=== PATIENT | female | born 1995 | race Two or more races ===

== ENCOUNTER 2020-05-20 12:30 | Outpatient (REF) | payer MEDICAID, SELFPAY | END 2020-05-20 12:31 | disposition home or self-care (01) | LOC: HO.LAB 12:30 | PROVIDERS: Visit Provider Internal Medicine | DX: Z20.828 Contact with and (suspected) exposure to other viral communicable diseases (principal) | CPT/HCPCS: C9803; U0003 ==

== ENCOUNTER 2020-08-26 12:56 | Outpatient (REF) | payer MEDICAID, SELFPAY ==
[2020-08-26 15:01] LABS: SARS COV2 PCR INHOUSE NEGATIVE (Negative)
== END 2020-08-26 12:57 | disposition home or self-care (01) ==
LOC: HO.LAB 12:56
PROVIDERS: Visit Provider Internal Medicine
DX: Z20.822 Contact with and (suspected) exposure to COVID-19 (principal)
CPT/HCPCS: C9803; U0003

== ENCOUNTER 2020-09-05 11:03 | Emergency (ER) | payer MEDICAID, SELFPAY ==
[2020-09-05 11:06] VITALS: BP 130/80; PULSE 110
[2020-09-05 11:32] LABS: Glucose, Whole Blood 81 mg/dL (60-115)
[2020-09-05 11:49] LABS: COVID-19 Test Negative (Negative)
[2020-09-05 11:59] VITALS: BP 140/73; PULSE 135; RESP 18; TEMP 39.6; O2SAT 98
[2020-09-05 12:53] VITALS: BP 140/73; PULSE 135; RESP 18; TEMP 39.6; O2SAT 98; BMI 39.3
--- NOTE | 2020-09-05 14:21 | ED.FEVER ---
HPI - Fever General Chief Complaint: Fever Stated Complaint: headache/anxiety Time Seen by Provider: 09/05/20 14:16 Source: patient Mode of arrival: ambulatory Limitations: no limitations History of Present Illness HPI Narrative: 25 yo female healthy with one day of fevers, close exposure last week to COVID + person, no other complaints MD elicited complaint: fever Pertinent past history: other (COVID exposure) Onset (ago): day(s) (1) Context: sick contacts and other(s) with similar symptoms Exacerbating factors: nothing Relieving factors: ibuprofen Associated symptoms: chills and headache Treatments prior to arrival fever: none Related Data Allergies Allergy/AdvReac Type Severity Reaction Status Date / Time No Known Allergies Allergy Verified 09/05/20 14:26 Review of Systems Review of Systems: Constitutional : No Weight loss, pos Fever, pos Chills, No Fatigue, No Malaise ENT/Mouth : No sore throat, No Rhinorrhea Eyes: No Eye Pain, No Swelling, No Redness Cardiovascular : No Chest Pain, No SOB Respiratory : No Cough, No Sputum, No Wheezing Gastrointestinal : No Nausea, No Vomiting, No Diarrhea, No Constipation, No abdominal Pain Genitourinary : No Dysuria, No Urinary Frequency, No Hematuria, Musculoskeletal : No joint pain, No Myalgias, No Joint Swelling Skin : No Skin Lesions, No rash Neuro : No Weakness, No Numbness, No Dizziness, mild pos Headache Heme/Lymph: No Bruising, No Bleeding,No Lymphadenopathy PMFSH Past Medical History Attestation statement: The following information was validated with the patient. Medical History No active medical problems Social History Social History (Updated 09/05/20 @ 14:34 by Cande Garcia DO) Smoking Status: Never smoker Use of substances other than those prescribed or required for medical reasons: No Advance Directives: No Physical Exam Vital Signs: Vital Signs: Last Vital Signs Temp 98.1 F 09/05/20 14:31 Pulse 135 H 09/05/20 12:53 Resp 18 09/05/20 12:53 BP 140/73 H 09/05/20 12:53 Pulse Ox 98 09/05/20 12:53 Body Mass Index 39.3 Appearance: Alert. Oriented X3. No acute distress. Eyes: Pupils equal, round and reactive to light. ENT: Pharynx normal. Neck: Normal inspection. Neck supple. CVS: Normal heart rate and rhythm. Pulses normal. Respiratory: No respiratory distress. Breath sounds normal. Abdomen: Soft and nontender. Skin: Skin warm and dry. Normal skin color. Normal skin turgor. Extremities: No lower extremity edema. No calf ttp Neuro: Oriented X 3. No motor deficit. No sensory deficit. Course Course Course Narrative: called with and left message with results instructed to return if this persists and to be retested in 3 days to remain out of work MDM - Fever MDM Narrative Medical decision making narrative: 25 yo female with recent close COVID exposure who tested positive on Tuesday she was at work today and developed a fever - she c/o fevers today, mild headache - no other complaints no cough, no urinary symptoms no rash - initial Abott sent off will send off PCR and treat as presumed COVID - patient aware and agrees, fever treated in triage not toxic Lab Data Labs: Lab Results 09/05/20 09/05/20 09/05/20 Range/Units 11:15 11:22 14:35 POC Glucose 81 (60-115) mg/dL Coronavirus (PCR) NEGATIVE (Negative) COVID-19 (PAN) Negative (Negative) COVID-19 Clin Com See Note Influenza Type A (PCR) NEGATIVE (Negative) Influenza Type B (PCR) NEGATIVE (Negative) RSV RNA Qual (PCR) NEGATIVE (Negative) Discharge Plan Discharge Clinical Impression: Viral infection, Close exposure to COVID-19 virus Fever Qualifiers: Fever type: unspecified Qualified Code(s): R50.9 - Fever, unspecified Patient Disposition: Home, Self-Care Instructions: COVID-19 (Coronavirus Disease 2019) (ED) Additional Instructions: return to ED for any worsening symptoms or concerns will call you with your COVID results today Stand Alone Forms: Work/School Release Interventions: ED Discharge Assessment Last Done: 09/05/20 15:01 Discharge Date/Time: 09/05/20 15:02
[2020-09-05 14:31] VITALS: TEMP 36.7
[2020-09-05] MEDS: Acetaminophen 325 MG TABLET 650 MG PO (15:01)
[2020-09-05 15:20] LABS: Influenza A PCR NEGATIVE (Negative); Influenza B PCR NEGATIVE (Negative); Resp Syncy Virus RNA Qual PCR NEGATIVE (Negative); SARS COV2 PCR INHOUSE NEGATIVE (Negative)
== END 2020-09-05 15:02 | disposition home or self-care (01) ==
LOC: HO.ED 14:39
PROVIDERS: Emergency Provider Emergency Medicine
DX: B34.9 Viral infection, unspecified (principal); Z20.822 Contact with and (suspected) exposure to COVID-19; R51.9 Headache, unspecified; R50.9 Fever, unspecified
CPT/HCPCS: 0241U; 36415; 82947; 87635; 99283

== ENCOUNTER 2020-09-09 15:17 | Outpatient (REF) | payer MEDICAID, SELFPAY ==
[2020-09-09 16:10] LABS: COVID-19 Test Negative (Negative)
== END 2020-09-09 15:18 | disposition home or self-care (01) ==
LOC: HO.LAB 15:17
PROVIDERS: Visit Provider Internal Medicine
DX: Z20.822 Contact with and (suspected) exposure to COVID-19 (principal)
CPT/HCPCS: 36415; 87635; C9803

== ENCOUNTER 2021-02-20 15:06 | Outpatient (REF) | payer MEDICAID, SELFPAY | END 2021-02-20 15:07 | disposition home or self-care (01) | LOC: HO.LAB 15:06 | PROVIDERS: Visit Provider Internal Medicine | DX: Z20.822 Contact with and (suspected) exposure to COVID-19 (principal) | CPT/HCPCS: C9803; U0003; U0005 ==

== ENCOUNTER 2021-08-04 08:46 | Emergency (ER) | payer MEDICAID, SELFPAY ==
--- NOTE | ~2021-08-04 | CT_ITS ---
EXAMINATION: CT HEAD WITHOUT CONTRAST CLINICAL INFORMATION: Fluoroscopy,. History of recent vision loss. COMPARISON: None TECHNIQUE: Contiguous axial imaging was performed from the skull base to vertex without intravenous administration of contrast. This CT examination was performed using dose optimization techniques as appropriate, variously including the following: *Automated exposure control *Adjustment of mA and/or kV according to patient size (this includes techniques or standardized protocols for targeted exams where dose is matched to indication/reason for exam; i.e. extremities or head) *Use of iterative reconstruction technique DLP: 686 mGy-cm FINDINGS: There is no evidence of acute intracranial hemorrhage or territorial infarction. No abnormal mass effect or midline shift is seen. Wiggins to white matter differentiation is well preserved. No extra-axial fluid collections are identified. The ventricles are normal in size. There is no abnormal attenuation within the brain parenchyma. The osseous structures and soft tissues are normal. The mastoid air cells and visualized portions of the paranasal sinuses are well aerated. CT/CT head/brain wo con IMPRESSION: No acute intracranial pathology.
[2021-08-04 10:31] VITALS: BP 158/70; PULSE 69; RESP 16; TEMP 37.2; O2SAT 99; BMI 38.6
[2021-08-04 13:10] LABS: MANUAL DIFF FLAG NO
[2021-08-04 13:14] LABS: Basophils Absolute Auto 0.1 X10*3/uL (0.0-0.2); Basophils Percent Auto 0.6 % (0-2); Eosinophils Absolute Auto 0.1 X10*3/uL (0.0-0.4); Hemoglobin 14.2 g/dl (12.0-16.0); Imm Gran Abs Auto 0.03 X10*3/uL (0.00-0.03); Imm Gran Pct Auto 0.4 % (0.0-0.4); Lymphocytes Absolute Auto 2.2 X10*3/uL (1.2-4.9); Lymphocytes Percent Auto 26.3 % (20-40); Mean Corpuscular Volume 84.6 fL (80.0-98.0); Mean Platelet Volume 11.5 fL (9.4-12.3); Monocytes Absolute Auto 0.7 X10*3/uL (0.1-1.2); Monocytes Percent Auto 8.2 % (2-11); Neutrophils Absolute Auto 5.2 x10*3/uL (2.0-8.3); Neutrophils Percent Auto 63.5 % (45-73); Platelet Count 303 X10*3/uL (160-400); Red Blood Count 5.08 X10*6/uL (4.20-5.50); Red Cell Distribution Width 12.9 % (11.0-16.0); White Blood Count 8.2 X10*3/uL (4.8-10.8)
[2021-08-04] MEDS: 0.9 % Sodium Chloride 1,000 ML 999 ML IVCONT (13:37)
[2021-08-04] MEDS: Ketorolac Tromethamine 15 MG/ML VIAL 30 MG IV (13:37)
[2021-08-04] MEDS: diphenhydrAMINE HCL 50 MG/ML VIAL 25 MG IVPUSH (13:38)
[2021-08-04 13:42] VITALS: BP 181/87; PULSE 82; RESP 16; O2SAT 99
[2021-08-04 13:53] LABS: Erythrocyte Sedimentation Rate 6 MM/HR (0-20)
--- NOTE | 2021-08-04 14:24 | ED_ITS ---
HPI - Headache General Chief Complaint: Headache Stated Complaint: Migraine Time Seen by Provider: 08/04/21 11:53 Source: patient Mode of arrival: ambulatory Limitations: no limitations History of Present Illness HPI Narrative: 26-year-old female with a past medical history of glaucoma currently on steroid drops presenting to the ED with complaints of a headache that came on gradually when she was at the store a few hours prior to arrival which started with a pain to her left orbital area and a dot in her vision then when she left the store she got in her car was driving and the pain worsened and she reports as a pressure and sensation/ warm sensation she reports that the spot in her I got bigger and it was more in her peripheral vision she describes it as different colors and looks like it was changing shapes per the patient. She reports that this lasted approximately 3 minutes and then her blurry vision/ weird colored shapes resolved and her vision went back to normal although now she has a head ache to the right aspect of her frontal / parietal scalp. She reports that she is currently on drops for her glaucoma. She was last seen by her director multiple sclerosis center in March 2021 and they explained to her that her right eye pressure is getting better. Although the left eye pressure is still a little worse than the right. Otherwise she denies any other symptoms related to this such as any fevers, neck pain/ stiffness, recent head injury or falls, any CO2 toxicity, recent tick bites, recent spinal/ epidural procedure, recent URI or any new medications, close contacts with similar symptoms, sick contacts, She denies any hypercoagulation disorder that she is aware of, or any other symptoms complaints or concerns at this time. MD elicited complaint: headache Pertinent past history: other ( history of glaucoma to bilateral eyes currently on steroid drops) Onset (ago): hour(s) ( prior to arrival) Onset description: gradually and with exertion Location: other ( left orbital area) Severity: mild Pain scale (0-10): 2 Quality & Timing: aching, pressure and first headache Exacerbating factors: none Relieving factors: nothing Context: occurred with exertion/activity Associated symptoms: other ( patient reported blurry vision and odd shape/ colors to her peripheral aspect of her left eye) Treatments prior to arrival: none Related Data Previous Rx's Medication Instructions Recorded diphenhydramine HCl 25 mg capsule 25 mg PO Q6H PRN #14 cap 03/08/22 (Benadryl) naproxen 500 mg tablet 500 mg PO BID PRN #14 tab 08/04/21 ondansetron 4 mg disintegrating 4 mg PO Q6-8H PRN #14 tab 08/04/21 tablet Allergies Allergy/AdvReac Type Severity Reaction Status Date / Time No Known Allergies Allergy Verified 09/05/20 14:26 Review of Systems Review of Systems: Constitutional : No changes in activity, No lethargy, No recent prior head injury, No agitation, No increased fussiness ENT/Mouth : No Ear Pain, No Nasal discharge/drainage Eyes: No Eye Pain, No Swelling, No Redness, No Foreign Body, + Vision Changes Cardiovascular : No Chest Pain, No SOB Respiratory : No Cough Gastrointestinal : No Nausea, No Vomiting, No abdominal Pain Genitourinary : No Dysuria, No Urinary Frequency, No Urinary Incontinence, No Urgency, No Flank Pain Musculoskeletal : No joint pain, No neck stiffness, No back pain/injury Skin : No lacerations Neuro : No unsteady gait, No Paresthesias, No Loss of Consciousness, No altered mental status, No dizziness, + Headache Denies past medical history of HIV, recent trauma, coagulopathy, recent spinal/ epidural procedure, new medication, URI symptoms, close contacts with similar symptoms, tick bite, or known CO2 exposure. Yes all other systems are reviewed and are negative [facility] Past Medical History Attestation statement: The following information was validated with the patient. Medical History Glaucoma Social History Social History Advance Directives: No Advance Directives Information Provided: No Physical Exam Vital Signs: Vital Signs: Last Vital Signs Temp 99.0 F 08/04/21 10:31 Pulse 82 08/04/21 13:42 Resp 16 08/04/21 13:42 BP 181/87 H 08/04/21 13:42 Pulse Ox 99 08/04/21 13:42 BMI result Body Mass Index 38.6 Vital signs have been reviewed as normal and appeared to be correct. Blood pressure 158/70. Heart rate normal. Respiration rate normal. Temperature normal. Oxygen saturation normal. Appearance: Alert. Oriented X3. No acute distress. Head: Normal external exam. Normocephalic. Atraumatic. Able to rotate head bilaterally. Eyes: PERRLA. EOMI. Conjunctiva are normal. Cornea are normal. Funduscopic exam within normal limits. Sclera normal. Eyelids normal. No papilledema noted. Anterior chamber normal. No photophobia noted. Pressure to right eye is 23. Pressure to left eye is 25. See nurse's notes for visual acuity. Corneal reflex normal. No nystagmus is noted. ENT: EAC normal. TM's Normal. Hearing normal. Pharynx normal. Uvula midline. tongue midline. Moist mucous membranes. No trismus noted. No drooling noted. No muffled voice noted. Neck: Normal inspection. Neck supple. FROM. No adenopathy. Thyroid Normal. No meningeal signs. No neck mass noted. CVS: Normal heart rate and rhythm. Heart sound normal. No murmurs noted. Pulses normal throughout. Respiratory: No respiratory distress. Painless inspiration. Breath sounds normal. No wheezes/rales/rhonchi noted. Chest nontender. No accessory muscle usage noted or decreased air movement noted. Back: Full range of motion noted. Skin: Skin warm and dry. Normal skin color. Normal skin turgor. No rashes/lesions/lacerations noted. Extremities: Extremities exhibit normal range of motion. Extremities nontender. Able to shrug shoulders bilaterally and keep up against resistance. Neuro: Oriented X 3. No motor deficit. No sensory deficit. Reflexes normal. Moving all extremities. No focal motor deficits. Cranial nerves II-XI intact bilaterally. Facial strength normal. Normal cognition. Speech normal. Gait normal. Strength 5/5 throughout. No pronator drift. No tremor noted. No fasciculations noted. Muscle tone normal throughout. No asterixis noted. Cyixjl-vj-bvqw test normal. Heel to lin test normal. Tandem gait normal. Does not sway with eyes open. Romberg test negative. Rapid alternating movement upper extremity normal. Rapid alternating movement lower extremity normal. Hand drop from overhead-Mrs. face. No rigidity noted. NIHSS score 0. Vascular: +2radial pulses b/l. + 2 distal pedal pulses b/l. no cyanosis noted to upper lower extremities. Course Course Course Narrative: 12:30pm - Patient afebrile, resting comfortably in no distress. Non-toxic appearing. Patient denies any recent trauma/injury to head. Neurological exam shows no deficits. BP WNL. Patient ambulates without difficulty. Given the history, and physical - most likely diagnosis: Orbital Migraine VIRAMONTES. Although due to patient reporting that this is the 1st time this has ever happened to her will obtain a CT scan of brain to evaluate for any acute processes. Will obtain labs. Will treat pain, and nausea. Then re-evaluate. gradual onset VIRAMONTES with nausea Most likely orbital migraine headache Due to history and physical. SAH: unlikely given gradual onset. Intracranial bleed: unlikely given neg trauma, neg anticoagulation Meningitis: unlikely given pt afebrile, neg stiff neck, no immune compromise. Exam without signs of meningismus Temporal arteritis: Unlikely given Neg jaw claudication, no temporal tenderness or nodularity on exam. Cerebral venous thrombosis: unlikely given no h/o hypercoaguable state, no chronic head/neck infection. Reevaluation(s) Reevaluation #1: - labs reviewed and carbon dioxide 21. BUN 5. CRP 0.52. Otherwise all other labs are within normal limits. Serum quant negative for . CT scan of brain within normal limits no acute processes are noted. - Therefore I discussed this with the patient reported that her eye pressures are normal therefore this is not worsening glaucoma at this time. Her CT scan is normal There is no mass or any other acute processes noted. She has a normal neuro exam. All her labs are normal. Therefore this is consistent with orbital migraine headache. Will DC home with symptomatic treatment instructions to return if any new or worsening symptoms to follow up with PCP/ o phthalmologist and to return if any new or worsening symptoms. Patient understands agrees with this plan. Time: 14:38 [facility] - Headache Medical Records Attestation: I reviewed the patient's medical records. Lab Data Attestation: I reviewed the patient's lab results. Result diagrams: 08/04/21 13:02 08/04/21 13:02 Labs: Lab Results 08/04/21 08/04/21 Range/Units 13:02 13:02 WBC 8.2 (4.8-10.8) X10*3/uL RBC 5.08 (4.20-5.50) X10*6/uL Hgb 14.2 (12.0-16.0) g/dl Hct 43.0 (37.0-47.0) % MCV 84.6 (80.0-98.0) fL MCH 28.0 (27.0-33.0) pg MCHC 33.0 (31.0-35.0) g/dl RDW 12.9 (11.0-16.0) % Plt Count 303 (160-400) X10*3/uL MPV 11.5 (9.4-12.3) fL Immature Gran % (Auto) 0.4 (0.0-0.4) % Neut % (Auto) 63.5 (45-73) % Lymph % (Auto) 26.3 (20-40) % [place] % (Auto) 8.2 (2-11) % Eos % (Auto) 1.0 (0-4) % Baso % (Auto) 0.6 (0-2) % Lymph # (Auto) 2.2 (1.2-4.9) X10*3/uL [place] # (Auto) 0.7 (0.1-1.2) X10*3/uL Eos # (Auto) 0.1 (0.0-0.4) X10*3/uL Baso # (Auto) 0.1 (0.0-0.2) X10*3/uL Abs Immat Gran (auto) 0.03 (0.00-0.03) X10*3/uL Absolute Neuts (auto) 5.2 (2.0-8.3) x10*3/uL Absolute Nucleated RBC 0.000 (0.0-0.012) X10*3/uL Nucleated RBC % (auto) 0.0 (0.0-0.2) /100WBC ESR 6 (0-20) MM/HR Imaging Data CT scan of brain without contrast: Attestation: I personally reviewed and interpreted this imaging study as follows: Radiologist's impression: FINDINGS: There is no evidence of acute intracranial hemorrhage or territorial infarction. No abnormal mass effect or midline shift is seen. Wiggins to white matter differentiation is well preserved. No extra-axial fluid collections are identified. The ventricles are normal in size. There is no abnormal attenuation within the brain parenchyma. The osseous structures and soft tissues are normal. The mastoid air cells and visualized portions of the paranasal sinuses are well aerated. ? CT/CT head/brain wo con IMPRESSION: No acute intracranial pathology. 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
[2021-08-04 14:28] LABS: Alanine Aminotransferase 21 U/L (0-31); Albumin Level 4.1 g/dL (3.5-5.0); Alkaline Phosphatase 96 U/L (39-117); Anion Gap 12 (12-20); Aspartate Amino Transferase 23 U/L (5-31); Bilirubin Total 0.4 mg/dL (0.0-1.0); Blood Urea Nitrogen 5 mg/dL (9-16); C Reactive Protein 0.52 mg/dL (< or = 0.50); Calcium 8.9 mg/dL (8.4-10.2); Carbon Dioxide 21 mmol/L (22-29); Chloride 108 mmol/L (96-108); Creatinine Clr Calc Pharmacy 136.3; Estimated Glomerular Filt Rate > 60; Glucose Random 89 mg/dL (60-115); Magnesium 1.9 mg/dL (1.6-2.6); Potassium 4.8 mmol/L (3.3-5.1); Sodium 136 mmol/L (135-145)
[2021-08-04 14:29] LABS: HCG Quantitative < 2 mIU/mL
== END 2021-08-04 15:01 | disposition home or self-care (01) ==
PROVIDERS: Physician Assistant Medical; Emergency Provider Emergency Medicine Emergency Medical Services
DX: G43.B0 Ophthalmoplegic migraine, not intractable (principal); H40.9 Unspecified glaucoma
CPT/HCPCS: 36415; 70450; 80053; 83735; 84702; 85025; 85652; 86140; 96361; 96374; 96375; 99284; 99291; J1200; J1885

== ENCOUNTER 2022-04-22 12:39 | Emergency (ER) | payer MEDICAID, SELFPAY ==
[2022-04-22 12:41] VITALS: BP 169/101; PULSE 127; RESP 19; TEMP 36.6; O2SAT 98; BMI 38.6
--- NOTE | 2022-04-22 12:50 | ED.NAVMDI ---
HPI - Nausea/Vomiting/Diarrhea General Chief complaint: Nausea/Vomiting/Diarrhea Stated complaint: NAUSEA VOMITING UNABLE TO EAT ANYTHING Time Seen by Provider: 04/22/22 12:47 Source: patient Limitations: no limitations History of Present Illness HPI Narrative: Patient concerned about food poisoning. Patient with nausea followed by vomiting. Others had the meat taco but no one else got sick. Patient had a fever, no sore throat or cough. Patient had some diarrhea. MD elicited complaint: nausea, vomiting and diarrhea Onset (ago): day(s) Associated nausea: Yes Associated abdominal pain: No Severity: mild Exacerbating factors: eating Associated symptoms: denies other symptoms Related Data Previous Rx's Medication Instructions Recorded diphenhydramine HCl 25 mg capsule 25 mg PO Q6H PRN nausea and 08/04/21 (Benadryl) vomiting #14 caps naproxen 500 mg tablet 500 mg PO BID PRN pain #14 tabs 08/04/21 ondansetron 4 mg disintegrating 4 mg PO Q6-8H PRN nausea and 08/04/21 tablet vomiting #14 tabs ondansetron 4 mg disintegrating 4 mg PO Q8H 4 days #12 tabs 04/22/22 tablet Allergies Allergy/AdvReac Type Severity Reaction Status Date / Time No Known Allergies Allergy Verified 09/05/20 14:26 Review of Systems Review of Systems: Yes all other systems are reviewed and are negative Gastrointestinal: Gastrointestinal: Reports nausea Neurologic: Denies Sensory deficit (Neuro) [facility] Past Medical History Medical History Glaucoma Social History Social History Alcohol intake: never Smoked in Last 30 Days: No Use of substances other than those prescribed or required for medical reasons: Yes Substance Use Type: Marijuana Advance Directives: No Advance Directives Information Provided: Yes Patient : No Physical Exam Vital Signs: Vital Signs: Last Vital Signs Temp 98.2 F 04/22/22 14:11 Pulse 83 04/22/22 14:11 Resp 16 04/22/22 14:11 BP 133/89 04/22/22 14:11 Pulse Ox 99 04/22/22 14:11 O2 Del Method 04/22/22 14:11 BMI result Body Mass Index 38.6 Const: General: healthy appearing Nutritional Appearance: average body habitus Orientation/consciousness: oriented to person and patient oriented x3 Limitations: no limitations HEENT: Head: Yes normal to inspection Ears: external ears normal General nose exam: Normal external nose present Mouth: Normal oral and palatal mucosa present and oropharynx normal Throat: Yes posterior oropharynx normal Eyes: General: appearance normal, both eyes and all related structures Neck: Other: supple Neck: Yes normal visual inspection Chest: Chest palpation & inspection: normal inspection of the chest Resp: Auscultation: clear to auscultation bilaterally Cardio: Jugular venous distension: no JVD Rate: regular rate Rhythm: regular rhythm Heart sounds: S1 normal heart sound present and S2 normal heart sound present GI: Inspection: Yes normal to inspection Palpation (GI): Soft to palpation, nontender and No hepatosplenomegaly present Auscultation: normal bowel sounds : General: Yes no CVA tenderness Back/Spine/Pelvis: Back: no CVA tenderness Skin: General skin exam: no rashes or lesions noted Neuro: General: oriented to person and patient oriented x3 Cranial nerves: Yes CN's II-XII intact bilaterally Motor exam (neuro): 5/5 motor strength present throughout Sensory Exam: No Sensory deficit (Neuro) Extrem: General: Yes normal to inspection Psych: Appearance: grossly normal Course Reevaluation(s) Reevaluation #1: Respiratory virus negative, no UTI (UA was contaminated) will dc on zofran Time: 15:40 Medications Administered Discontinued Medications Generic Name Dose Route Start Last Admin Trade Name Freq PRN Reason Stop Dose Admin Ondansetron HCl 4 mg 04/22/22 12:56 04/22/22 13:02 Ondansetron Odt 4 Mg Tab.Rapdis TRANSLINGU 04/22/22 12:57 4 mg ONCE ONE Administration MDM - Nausea/Vomiting/Diarrhea Lab Data Labs: Lab Results 04/22/22 04/22/22 04/22/22 Range/Units 13:06 14:39 14:39 Urine Color Yellow Urine Appearance Clear Urine pH 5.5 (5.0-9.0) Ur Specific [place] 1.010 (1.005-1.025) Urine Protein Negative (Neg-Trace) mg/dL Urine Glucose (UA) Negative (Negative) mg/dL Urine Ketones 15 (Negative) mg/dL Urine Blood Small (1+) H (Negative) Urine Nitrite Negative (Negative) Ur Leukocyte Esterase Small (1+) H (Negative) Urine RBC 0-2 (0-2) /HPF Urine WBC 11-20 H (0-5) /HPF Ur Squamous Epith Cells 11-20 (0-2) /HPF Urine Bacteria 1+ (None Seen) Hyaline Casts 0-2 (0-2) /LPF Urine Test NEGATIVE (NEGATIVE) Influenza Type A (PCR) NEGATIVE (Negative) Influenza Type B (PCR) NEGATIVE (Negative) RSV RNA Qual (PCR) NEGATIVE (Negative) SARS-CoV-2 RNA (RT-PCR) NEGATIVE (Negative) Discharge Plan Discharge Clinical Impression: Nausea & vomiting Patient Disposition: Home, Self-Care Instructions: Acute Nausea and Vomiting (ED) Prescriptions: New ondansetron 4 mg tablet,disintegrating 4 mg PO Q8H 4 Days Qty: 12 0RF No Action naproxen 500 mg tablet 500 mg PO BID PRN (Reason: pain) Qty: 14 0RF diphenhydramine HCl [Benadryl] 25 mg capsule 25 mg PO Q6H PRN (Reason: nausea and vomiting) Qty: 14 0RF ondansetron 4 mg tablet,disintegrating 4 mg PO Q6-8H PRN (Reason: nausea and vomiting) Qty: 14 0RF Referrals: Physician,Unknown J [Primary Care Provider] - 1 week
[2022-04-22] MEDS: Ondansetron ODT 4 MG TAB.RAPDIS TRANSLINGU (13:02)
--- NOTE | 2022-04-22 13:19 | PC.NURSE ---
patient a&ox3, pt medicated for nausea per order, swab obtained, pt is aware that we also need a urine.
[2022-04-22 13:57] LABS: Influenza A PCR NEGATIVE (Negative); Influenza B PCR NEGATIVE (Negative); Resp Syncy Virus RNA Qual PCR NEGATIVE (Negative); SARS COV2 PCR INHOUSE NEGATIVE (Negative)
[2022-04-22 14:11] VITALS: BP 133/89; PULSE 83; RESP 16; TEMP 36.8; O2SAT 99
[2022-04-22 14:48] LABS: Appearance Urine Clear; Color Urine Yellow; Glucose Urine UA Negative (Negative); Leukocyte Esterase Urine Small (1+) (Negative); Nitrite Urine Negative (Negative); PH 5.5 (5.0-9.0); UMIC TRIGGER UACC YES; Urine Blood Small (1+) (Negative); Urine Ketones 15 mg/dL (Negative); Urine Protein Negative (Neg-Trace)
[2022-04-22 14:49] LABS: UPreg QC Valid YES; Urine Pregnancy NEGATIVE (NEGATIVE)
[2022-04-22 15:01] LABS: Bacteria Urine 1+ (None Seen); Hyaline Casts Urine 0-2 /LPF (0-2); RBC Urine 0-2 /HPF (0-2); UACC Culture Trigger YES
[2022-04-22 15:59] VITALS: BP 135/82; PULSE 80; RESP 18; TEMP 37.1; O2SAT 99
== END 2022-04-22 16:01 | disposition home or self-care (01) ==
PROVIDERS: Emergency Provider Emergency Medicine
DX: R11.2 Nausea with vomiting, unspecified (principal); Z20.822 Contact with and (suspected) exposure to COVID-19
CPT/HCPCS: 0241U; 81001; 81025; 87086; 87147; 99283; 99284

== ENCOUNTER 2022-05-08 07:00 | Emergency (ER) | payer MEDICAID, SELFPAY ==
[2022-05-08 07:03] VITALS: BP 148/100; PULSE 100; RESP 20; TEMP 36.8; O2SAT 99; BMI 38.9
[2022-05-08 07:55] LABS: Appearance Urine Cloudy; Color Urine Yellow; Glucose Urine UA Negative (Negative); Leukocyte Esterase Urine Large (3+) (Negative); Nitrite Urine Negative (Negative); PH 5.5 (5.0-9.0); Specific Gravity - Urine 1.015 (1.005-1.025); UMIC TRIGGER UACC YES; Urine Blood Negative (Negative); Urine Ketones 15 mg/dL (Negative); Urine Protein Trace mg/dL (Neg-Trace)
[2022-05-08 07:59] LABS: Urine Pregnancy NEGATIVE (NEGATIVE)
[2022-05-08 08:00] LABS: UPreg QC Valid YES
--- NOTE | 2022-05-08 08:03 | ED.FEMALEGU ---
HPI - Female Genitourinary General Chief complaint: Urogenital-Female Stated complaint: yeast infection Time Seen by Provider: 05/08/22 08:01 Source: patient Mode of arrival: ambulatory History of Present Illness HPI Narrative: 27-year-old female with past medical history of glaucoma, recently treated for yeast infection s/p antibiotic use presenting to the ED complaining of painful lesions to vaginal area x 1 week with clear vaginal discharge. States had pelvic exam for yearly PAP smear, diagnosed with yeast infection however next day developed worsening red bumps/lesions. Reports new sexual partner two weeks ago, there is concern for STI. Reports associated dysuria. Denies fever, chills, abdominal pain, flank pain, hematuria MD elicited complaint: dysuria, vaginal discharge and possible STD Related Data Previous Rx's Medication Instructions Recorded diphenhydramine HCl 25 mg capsule 25 mg PO Q6H PRN nausea and 08/04/21 (Benadryl) vomiting #14 caps naproxen 500 mg tablet 500 mg PO BID PRN pain #14 tabs 08/04/21 ondansetron 4 mg disintegrating 4 mg PO Q6-8H PRN nausea and 08/04/21 tablet vomiting #14 tabs ondansetron 4 mg disintegrating 4 mg PO Q8H 4 days #12 tabs 04/22/22 tablet doxycycline hyclate 100 mg tablet 100 mg PO BID 7 days #14 tabs 05/08/22 valacyclovir 1 gram tablet 1,000 mg PO BID 10 days #20 tabs 05/08/22 (Valtrex) metronidazole 500 mg tablet 500 mg PO BID 7 days #14 tabs 05/10/22 Allergies Allergy/AdvReac Type Severity Reaction Status Date / Time No Known Allergies Allergy Verified 09/05/20 14:26 Review of Systems Review of Systems: Constitutional: No Fever, No Chills, No Fatigue, No Malaise ENT/Mouth: No Ear Pain, No Nasal Congestion, No Sinus Pain, No Hoarseness, No sore throat, No Rhinorrhea, No Swallowing Difficulty Eyes: No Eye Pain, No Swelling, No Redness, No Vision Changes Cardiovascular: No Chest Pain, No SOB, No Edema, No Palpitations Respiratory: No Cough, No Sputum, No Wheezing, No Smoke Exposure, No Dyspnea Gastrointestinal: No Nausea, No Vomiting, No Diarrhea, No Constipation, No Abdominal pain Genitourinary: No irregular bleeding, + Dysuria, +vaginal discharge, +vaginal lesions, No Hematuria, No Flank Pain, No Urinary Flow Changes, No Hesitancy Musculoskeletal: No joint pain, No Myalgias, No Joint Swelling Skin: No Skin Lesions, No rash Neuro: No Weakness, No Dizziness, No Headache Yes all other systems are reviewed and are negative Constitutional: Constitutional: Reports as per [facility] Past Medical History Attestation statement: The following information was validated with the patient. Medical History Glaucoma Social History Social History Alcohol intake: never Substance Use Type: Marijuana Advance Directives: No Advance Directives Information Provided: No Physical Exam Vital Signs: Vital Signs: Last Vital Signs Temp 98.2 F 05/08/22 07:03 Pulse 100 05/08/22 07:03 Resp 20 05/08/22 07:03 BP 148/100 H 05/08/22 07:03 Pulse Ox 99 05/08/22 07:03 O2 Del Method 05/08/22 07:03 BMI result Body Mass Index 38.9 Const: General: cooperative, healthy appearing and no acute distress Orientation/consciousness: patient oriented x3 Limitations: no limitations HEENT: Head: Yes normal to inspection and Yes atraumatic Ears: hearing grossly normal bilaterally General nose exam: Normal external nose present Face and sinus: Yes normal facial exam Eyes: General: appearance normal, both eyes and all related structures EOM: EOMs intact bilaterally Neck: Neck: Yes normal visual inspection and Yes no meningeal signs Resp: Effort & Inspection: normal respiratory effort and no respiratory distress Cardio: Rate: regular rate Heart sounds: S1 normal heart sound present and S2 normal heart sound present GI: Inspection: Yes normal to inspection Palpation (GI): Soft to palpation, nontender, no guarding and not rigid : General: Yes no CVA tenderness External Female Exam: lesion (+erythematous ulcerations to labia majora/minora and perianal area) Speculum Exam - Vagina: abnormal vaginal discharge white, clear and virgen and No vaginal bleeding Speculum Exam - Cervix: Abnormal cervical discharge present OB/external & speculum: No vaginal bleeding Back/Spine/Pelvis: Back: no CVA tenderness Skin: Rashes: no rashes Wounds: no wounds Neuro: General: patient oriented x3, tone normal and no meningeal signs Gait exam (Neuro): Normal gait present Extrem: General: Yes normal to inspection Course Course Course Narrative: -UA with leukocyte esterase, 21-50 wbc's, rbc's, and epithelials > likely from STI rather than UTI. Patient agreeable to empiric STI treatment with IM Rocephin, PO doxycycline, and p.o. Valtrex Results discussed with patient including worrisome signs and symptoms and strict return precautions, and when to return to the emergency department. They verbalized understanding and feel safe for discharge at this time. Medications Administered Discontinued Medications Generic Name Dose Route Start Last Admin Trade Name Freq PRN Reason Stop Dose Admin Ceftriaxone Sodium 500 mg/ 0 mg 05/08/22 09:46 05/08/22 09:57 Lidocaine HCl 1 ml IM 05/08/22 09:47 1 kit ONCE ONE Administration Doxycycline Monohydrate 100 mg 05/08/22 09:46 05/08/22 09:57 Doxycycline Monohydrate 100 Mg Capsule PO 05/08/22 09:47 100 mg ONCE ONE Administration Valacyclovir HCl 1,000 mg 05/08/22 09:46 05/08/22 09:57 Valacyclovir Hcl 1,000 Mg Tablet PO 05/08/22 09:47 1,000 mg ONCE ONE Administration Medical Decision Making Medical Decision Making [facility] Narrative: 27-year-old female with past medical history of glaucoma, recently treated for yeast infection s/p antibiotic use presenting to the ED complaining of painful lesions to vaginal area x 1 week with clear vaginal discharge. On exam hypertensive likely from pain, NAD/nontoxic, abdomen soft/nontender, on pelvic exam + ulcerations to labia and perianal area with notable vaginal discharge. Concern herpes and other STI. Low suspicion for ovarian torsion/TOA or appendicitis/diverticulitis. Rule out UTI Plan: UA, , STI testing Differential Diagnoses: Differential diagnosis (as above) Lab Attestation: I reviewed the patient's lab results. Discharge Plan Discharge Clinical Impression: Herpes, STI (sexually transmitted infection) Patient Disposition: Home, Self-Care Instructions: Genital Herpes Simplex (ED), Sexually Transmitted Diseases (ED) Additional Instructions: Your exam is consistent with likely herpes infection. We are also concern for other sexually transmitted infections, we swabbed you, however results will not be back for 2-3 days, you will be contacted with positive results only. Please refrain from any sexual contact until the results are back Valtrex will treat herpes infection. Doxycycline will continue to treat chlamydia. You were also treated for gonorrhea. Take medications to completion If her symptoms persist or worsen, you are unable to urinate, developed fever, pain, pain return to the emergency department Piece of close follow-up with her OBGYN, call to make an appointment Prescriptions: New valacyclovir [Valtrex] 1 gram tablet 1,000 mg PO BID 10 Days Qty: 20 0RF doxycycline hyclate 100 mg tablet 100 mg PO BID 7 Days Qty: 14 0RF metronidazole 500 mg tablet 500 mg PO BID 7 Days Qty: 14 0RF No Action ondansetron 4 mg tablet,disintegrating 4 mg PO Q8H 4 Days Qty: 12 0RF naproxen 500 mg tablet 500 mg PO BID PRN (Reason: pain) Qty: 14 0RF diphenhydramine HCl [Benadryl] 25 mg capsule 25 mg PO Q6H PRN (Reason: nausea and vomiting) Qty: 14 0RF ondansetron 4 mg tablet,disintegrating 4 mg PO Q6-8H PRN (Reason: nausea and vomiting) Qty: 14 0RF [place] [facility] [place] [facility] [place]] Fabi Santoro FNP [Primary Care Provider] - 5 days Interventions: ED Discharge Assessment Last Done: 05/08/22 10:03 Discharge Date/Time: 05/08/22 10:04
[2022-05-08 08:09] LABS: Bacteria Urine 1+ (None Seen); Hyaline Casts Urine 0-2 /LPF (0-2); UACC Culture Trigger YES; WBC Urine 21-50 /HPF (0-5)
[2022-05-08] MEDS: cefTRIAXone sodium 500 MG, Lidocaine HCl 1 % MPF 1 ML IM (09:57)
[2022-05-08] MEDS: valACYclovir HCL 1,000 MG TABLET 1000 MG PO (09:57)
[2022-05-08] MEDS: Doxycycline Monohydrate 100 MG CAPSULE PO (09:57)
[2022-05-08 12:28] LABS: BV Int Neg Control Negative (Negative); BV Int Pos Control Positive (Positive)
[2022-05-08 13:34] LABS: CT PCR NOT DETECTED (Not Detect.); NG PCR NOT DETECTED (Not Detect.)
== END 2022-05-08 10:04 | disposition home or self-care (01) ==
PROVIDERS: Physician Assistant; Emergency Provider Emergency Medicine; PCP Registered Nurse
DX: A60.04 Herpesviral vulvovaginitis (principal); N76.0 Acute vaginitis
CPT/HCPCS: 36415; 81001; 81025; 87086; 87147; 87255; 87480; 87491; 87510; 87591; 87660; 96372; 99282; 99284; J0696

== ENCOUNTER 2022-05-10 | Outpatient (REF) | payer MEDICAID, SELFPAY ==
--- NOTE | ~2022-05-10 | XR_ITS ---
EXAMINATION: XR KNEES, STANDING AP XR KNEE, RIGHT CLINICAL INFORMATION: M25.569 - Pain in unspecified knee COMPARISON: None TECHNIQUE: Standing AP view of both knees is performed. Additional lateral and axial patella views of the right knee are also provided. FINDINGS: Right: No fracture, dislocation or definite effusion. Hoffa's fat pad appears normal. Normal bony mineralization. There is marginal osteophyte from medial femoral condyle. No definite joint narrowing and no subchondral sclerosis, erosive change, or visible chondrocalcinosis. Axial view patella shows no lateralization or tilting. Left: Normal bony mineralization. No focal joint narrowing or erosive change or chondrocalcinosis. XR/XR knee standing BI IMPRESSION: Right: -Marginal osteophyte medial femoral condyle. -No definite joint narrowing. No erosive change. No definite effusion. -No lateralization or tilting patella. Left: -Unremarkable.
--- NOTE | ~2022-05-10 | XR_ITS ---
EXAMINATION: XR KNEES, STANDING AP XR KNEE, RIGHT CLINICAL INFORMATION: M25.569 - Pain in unspecified knee COMPARISON: None TECHNIQUE: Standing AP view of both knees is performed. Additional lateral and axial patella views of the right knee are also provided. FINDINGS: Right: No fracture, dislocation or definite effusion. Hoffa's fat pad appears normal. Normal bony mineralization. There is marginal osteophyte from medial femoral condyle. No definite joint narrowing and no subchondral sclerosis, erosive change, or visible chondrocalcinosis. Axial view patella shows no lateralization or tilting. Left: Normal bony mineralization. No focal joint narrowing or erosive change or chondrocalcinosis. XR/XR knee RT 2V IMPRESSION: Right: -Marginal osteophyte medial femoral condyle. -No definite joint narrowing. No erosive change. No definite effusion. -No lateralization or tilting patella. Left: -Unremarkable.
== END 2022-05-10 00:01 ==
LOC: HO.HOSX
PROVIDERS: Visit Provider Physician Assistant
DX: M25.561 Pain in right knee (principal)
CPT/HCPCS: 73560; 73565; 99202

== ENCOUNTER 2022-05-15 12:04 | Emergency (ER) | payer MEDICAID, SELFPAY ==
--- NOTE | ~2022-05-15 | CT_ITS ---
EXAMINATION: CT ABDOMEN AND PELVIS WITHOUT CONTRAST CLINICAL INFORMATION: Urinary retention COMPARISON: None. TECHNIQUE: Multidetector volumetric imaging was performed from the lung bases through the pubic symphysis. Sagittal and coronal reformatted images were obtained on the technologist workstation. This CT examination was performed using dose optimization techniques as appropriate, variously including the following: *Automated exposure control *Adjustment of mA and/or kV according to patient size (this includes techniques or standardized protocols for targeted exams where dose is matched to indication/reason for exam; i.e. extremities or head) *Use of iterative reconstruction technique FINDINGS: The lack of intravenous contrast limits evaluation of the solid visceral organs including the liver, spleen, pancreas, and kidneys. LUNG BASES: The visualized lung bases are unremarkable. LIVER, GALLBLADDER, AND BILIARY TREE: Limited non-contrast evaluation is normal. No gross focal hepatic lesion. Normal liver size and contour. No gross biliary ductal dilation. The gallbladder is unremarkable with no evidence of radiopaque gallstones, gallbladder wall thickening, or obvious pericholecystic inflammatory changes. PANCREAS: Limited non-contrast evaluation is normal. No zay-pancreatic fluid. SPLEEN: Limited non-contrast evaluation is normal. ADRENAL GLANDS: Normal; no adrenal mass. KIDNEYS AND URETERS: Limited non-contrast evaluation is normal. No hydronephrosis, hydroureter, or calculi seen. No perinephric stranding. GASTROINTESTINAL TRACT: Small bowel and colon are non-dilated. No bowel wall thickening. No pericolonic inflammatory changes to suggest colitis or diverticulitis. The appendix is normal in caliber with several foci of gas. There is however trace fluid adjacent the appendix in the right lower quadrant. ABDOMINAL WALL: No hernia seen. LYMPH NODES: No pathologically enlarged lymph nodes in the abdomen or pelvis. VASCULAR: Normal caliber abdominal aorta. BLADDER: The bladder is significantly distended. No calculi or bladder wall irregularity. PELVIC VISCERA: Normal noncontrast appearance of the uterus and ovaries. OSSEOUS STRUCTURES: No acute or suspicious osseous abnormalities. CT/CT abdomen pelvis wo IV con IMPRESSION: Markedly distended urinary bladder. If the patient was not able to void spontaneously she may benefit from placement of a Amador catheter. No radiopaque urolithiasis seen. There is trace right lower quadrant free fluid adjacent to an otherwise normal-appearing appendix.
[2022-05-15 12:17] VITALS: BP 149/91; PULSE 95; RESP 18; TEMP 36.7; O2SAT 98; BMI 38.9
--- NOTE | 2022-05-15 12:17 | ED.FEMALEGU ---
HPI - Female Genitourinary General Chief complaint: Urogenital-Female <DEVANTE Tomlin - Last Filed: 05/15/22 12:22> Stated complaint: Urinary retention <DEVANTE Tomlin - Last Filed: 05/15/22 12:22> Time Seen by Provider: 05/15/22 12:32 <DEVANTE Tomlin - Last Filed: 05/15/22 12:22> Source: patient <Kevin Lee MD - Last Filed: 05/15/22 15:34> Mode of arrival: ambulatory <Kevin Lee MD - Last Filed: 05/15/22 15:34> Limitations: no limitations <Kevin Lee MD - Last Filed: 05/15/22 15:34> History of Present Illness HPI Narrative: - 27yoF who is recently seen here on 05/08/2022 and diagnosed with bacterial vaginosis and herpes sent home with treatment presenting to the ER with complaints of urinary retention since Tuesday with associated abdominal pain and feeling bloated. Reports that she urinated this morning although it was only a few drops. She reports decreased p.o. intake due to this urinary retention. She reports that she pushes hard and is unable to get the urine out. She reports she is currently starting her menstrual period. She reports she is irritated in the vaginal area unsure if she has any lesions at this time. She denies any fevers, chills, nausea/vomiting, back pain, abnormal vaginal discharge, hematuria, diarrhea constipation or any other symptoms complaints or concerns at this time Patient was placed on valcyclovir, doxy and flagyl Patient states she has been unable to urinate for the last 3 days. <Kevin Lee MD - Last Filed: 05/15/22 15:34> MD elicited complaint: dysuria <Kevin Lee MD - Last Filed: 05/15/22 15:34> Pertinent past history: STI/STD <Kevin Lee MD - Last Filed: 05/15/22 15:34> Onset (ago): day(s) <Kevin Lee MD - Last Filed: 05/15/22 15:34> Location of symptoms: external genitalia and suprapubic <Kevin Lee MD - Last Filed: 05/15/22 15:34> Severity: mild <Kevin Lee MD - Last Filed: 05/15/22 15:34> Related Data Home medications: Home Medications Medication Instructions Recorded Confirmed latanoprost 0.005 % eye drops 1 drp ophthalmic (eye) QPM 05/10/22 norethindrone (contraceptive) 0.35 0.35 mg PO DAILY 05/10/22 mg tablet (Holli) Previous Rx's Medication Instructions Recorded diphenhydramine HCl 25 mg capsule 25 mg PO Q6H PRN nausea and 08/04/21 (Benadryl) vomiting #14 caps naproxen 500 mg tablet 500 mg PO BID PRN pain #14 tabs 08/04/21 ondansetron 4 mg disintegrating 4 mg PO Q6-8H PRN nausea and 08/04/21 tablet vomiting #14 tabs ondansetron 4 mg disintegrating 4 mg PO Q8H 4 days #12 tabs 04/22/22 tablet doxycycline hyclate 100 mg tablet 100 mg PO BID 7 days #14 tabs 05/08/22 valacyclovir 1 gram tablet 1,000 mg PO BID 10 days #20 tabs 05/08/22 (Valtrex) metronidazole 500 mg tablet 500 mg PO BID 7 days #14 tabs 05/10/22 <DEVANTE Tomlin - Last Filed: 05/15/22 12:22> Allergies/Adverse reactions: Allergies Allergy/AdvReac Type Severity Reaction Status Date / Time No Known Allergies Allergy Verified 05/15/22 12:17 <DEVANTE Tomlin - Last Filed: 05/15/22 12:22> [facility] Past Medical History Medical History: Medical History Glaucoma <DEVANTE Tomlin - Last Filed: 05/15/22 12:22> Social History Social History: Social History (Updated 05/10/22 @ 15:28 by ALTHEA Hunter) Alcohol intake: never Patient Tobacco Use Status: Never used Tobacco Smoked in Last 30 Days: No Use of substances other than those prescribed or required for medical reasons: No Substance Use Type: Marijuana Advance Directives: No Advance Directives Information Provided: No Patient : No Current occupational status: employed Current occupation: packaging <DEVANTE Tomlin - Last Filed: 05/15/22 12:22> Physical Exam Vital Signs: Vital Signs: Last Vital Signs Temp 98.7 F 05/15/22 12:44 Pulse 82 05/15/22 12:44 Resp 20 05/15/22 12:44 BP 146/84 H 05/15/22 12:44 Pulse Ox 98 05/15/22 12:17 O2 Del Method 05/15/22 12:44 BMI result Body Mass Index 38.9 <DEVANTE Tomlin - Last Filed: 05/15/22 12:22> Vital Signs: Last Vital Signs Temp 98.7 F 05/15/22 12:44 Pulse 82 05/15/22 12:44 Resp 20 05/15/22 12:44 BP 146/84 H 05/15/22 12:44 Pulse Ox 98 05/15/22 12:17 O2 Del Method 05/15/22 12:44 BMI result Body Mass Index 38.9 <Kevin Lee MD - Last Filed: 05/15/22 15:34> Course Course Course Narrative: KIMBERLY- 12:20PM - 27yoF who is recently seen here on 05/08/2022 and diagnosed with bacterial vaginosis and herpes sent home with treatment presenting to the ER with complaints of urinary retention since Tuesday with associated abdominal pain and feeling bloated. Reports that she urinated this morning although it was only a few drops. She reports decreased p.o. intake due to this urinary retention. She reports that she pushes hard and is unable to get the urine out. She reports she is currently starting her menstrual period. She reports she is irritated in the vaginal area unsure if she has any lesions at this time. She denies any fevers, chills, nausea/vomiting, back pain, abnormal vaginal discharge, hematuria, diarrhea constipation or any other symptoms complaints or concerns at this time Plan: Patient is stable she will be going back to the waiting room to be evaluated in the ER. Labs, UA, CT scan abdomen pelvis without IV contrast and a bladder scan was ordered at this time. <DEVANTE Tomlin - Last Filed: 05/15/22 12:22> Reevaluation(s) Reevaluation #1: patient with urinary retention will dc home <Kevin Lee MD - Last Filed: 05/15/22 15:34> Time: 15:31 <Kevin Lee MD - Last Filed: 05/15/22 15:34> Medical Decision Making Differential Diagnosis UTI, urinary obstruction <Kevin Lee MD - Last Filed: 05/15/22 15:34> Lab Data Result Diagrams: : 05/15/22 12:42 05/15/22 12:42 <DEVANTE Tomlin - Last Filed: 05/15/22 12:22> Labs: Lab Results 05/15/22 05/15/22 05/15/22 Range/Units 12:42 12:42 12:42 WBC 8.9 (4.8-10.8) X10*3/uL RBC 5.43 (4.20-5.50) X10*6/uL Hgb 15.3 (12.0-16.0) g/dl Hct 44.8 (37.0-47.0) % MCV 82.5 (80.0-98.0) fL MCH 28.2 (27.0-33.0) pg MCHC 34.2 (31.0-35.0) g/dl RDW 12.9 (11.0-16.0) % Plt Count 303 (160-400) X10*3/uL MPV 11.6 (9.4-12.3) fL Immature Gran % (Auto) 0.5 H (0.0-0.4) % Neut % (Auto) 65.6 (45-73) % Lymph % (Auto) 23.5 (20-40) % Marshall % (Auto) 8.9 (2-11) % Eos % (Auto) 0.7 (0-4) % Baso % (Auto) 0.8 (0-2) % Lymph # (Auto) 2.1 (1.2-4.9) X10*3/uL Marshall # (Auto) 0.8 (0.1-1.2) X10*3/uL Eos # (Auto) 0.1 (0.0-0.4) X10*3/uL Baso # (Auto) 0.1 (0.0-0.2) X10*3/uL Abs Immat Gran (auto) 0.04 H (0.00-0.03) X10*3/uL Absolute Neuts (auto) 5.8 (2.0-8.3) x10*3/uL Absolute Nucleated RBC 0.000 (0.0-0.012) X10*3/uL Nucleated RBC % (auto) 0.0 (0.0-0.2) /100WBC PT 13.0 (10.0-13.1) SEC INR 1.1 (0.9-1.1) Sodium 137 (135-145) mmol/L Potassium 4.0 (3.3-5.1) mmol/L Chloride 105 (96-108) mmol/L Carbon Dioxide 23 (22-29) mmol/L Anion Gap 13 (12-20) BUN 9 (9-16) mg/dL Creatinine 0.77 (0.5-1.4) mg/dL Estim Creat Clear Calc 130.5 Estimated GFR > 60 Random Glucose 103 (60-115) mg/dL Calcium 9.5 D (8.4-10.2) mg/dL Magnesium 1.9 (1.6-2.6) mg/dL Total Bilirubin 0.8 (0.0-1.0) mg/dL AST 22 (5-31) U/L ALT 25 (0-31) U/L Alkaline Phosphatase 86 (39-117) U/L Total Protein 8.1 H (6.5-8.0) g/dL Albumin 4.4 (3.5-5.0) g/dL Beta HCG, Quant < 2 mIU/mL Urine Color Urine Appearance Urine pH (5.0-9.0) Ur Specific [place] (1.005-1.025) Urine Protein (Neg-Trace) mg/dL Urine Glucose (UA) (Negative) mg/dL Urine Ketones (Negative) mg/dL Urine Blood (Negative) Urine Nitrite (Negative) Ur Leukocyte Esterase (Negative) Urine Test (NEGATIVE) 05/15/22 05/15/22 Range/Units 14:46 14:46 WBC (4.8-10.8) X10*3/uL RBC (4.20-5.50) X10*6/uL Hgb (12.0-16.0) g/dl Hct (37.0-47.0) % MCV (80.0-98.0) fL MCH (27.0-33.0) pg MCHC (31.0-35.0) g/dl RDW (11.0-16.0) % Plt Count (160-400) X10*3/uL MPV (9.4-12.3) fL Immature Gran % (Auto) (0.0-0.4) % Neut % (Auto) (45-73) % Lymph % (Auto) (20-40) % Marshall % (Auto) (2-11) % Eos % (Auto) (0-4) % Baso % (Auto) (0-2) % Lymph # (Auto) (1.2-4.9) X10*3/uL Marshall # (Auto) (0.1-1.2) X10*3/uL Eos # (Auto) (0.0-0.4) X10*3/uL Baso # (Auto) (0.0-0.2) X10*3/uL Abs Immat Gran (auto) (0.00-0.03) X10*3/uL Absolute Neuts (auto) (2.0-8.3) x10*3/uL Absolute Nucleated RBC (0.0-0.012) X10*3/uL Nucleated RBC % (auto) (0.0-0.2) /100WBC PT (10.0-13.1) SEC INR (0.9-1.1) Sodium (135-145) mmol/L Potassium (3.3-5.1) mmol/L Chloride (96-108) mmol/L Carbon Dioxide (22-29) mmol/L Anion Gap (12-20) BUN (9-16) mg/dL Creatinine (0.5-1.4) mg/dL Estim Creat Clear Calc Estimated GFR Random Glucose (60-115) mg/dL Calcium (8.4-10.2) mg/dL Magnesium (1.6-2.6) mg/dL Total Bilirubin (0.0-1.0) mg/dL AST (5-31) U/L ALT (0-31) U/L Alkaline Phosphatase (39-117) U/L Total Protein (6.5-8.0) g/dL Albumin (3.5-5.0) g/dL Beta HCG, Quant mIU/mL Urine Color Yellow Urine Appearance Clear Urine pH 6.0 (5.0-9.0) Ur Specific [place] 1.015 (1.005-1.025) Urine Protein Negative (Neg-Trace) mg/dL Urine Glucose (UA) Negative (Negative) mg/dL Urine Ketones Negative (Negative) mg/dL Urine Blood Negative (Negative) Urine Nitrite Negative (Negative) Ur Leukocyte Esterase Negative (Negative) Urine Test NEGATIVE (NEGATIVE) <DEVANTE Tomlin - Last Filed: 05/15/22 12:22> Lab Results 05/15/22 05/15/22 05/15/22 Range/Units 12:42 12:42 12:42 WBC 8.9 (4.8-10.8) X10*3/uL RBC 5.43 (4.20-5.50) X10*6/uL Hgb 15.3 (12.0-16.0) g/dl Hct 44.8 (37.0-47.0) % MCV 82.5 (80.0-98.0) fL MCH 28.2 (27.0-33.0) pg MCHC 34.2 (31.0-35.0) g/dl RDW 12.9 (11.0-16.0) % Plt Count 303 (160-400) X10*3/uL MPV 11.6 (9.4-12.3) fL Immature Gran % (Auto) 0.5 H (0.0-0.4) % Neut % (Auto) 65.6 (45-73) % Lymph % (Auto) 23.5 (20-40) % Marshall % (Auto) 8.9 (2-11) % Eos % (Auto) 0.7 (0-4) % Baso % (Auto) 0.8 (0-2) % Lymph # (Auto) 2.1 (1.2-4.9) X10*3/uL Marshall # (Auto) 0.8 (0.1-1.2) X10*3/uL Eos # (Auto) 0.1 (0.0-0.4) X10*3/uL Baso # (Auto) 0.1 (0.0-0.2) X10*3/uL Abs Immat Gran (auto) 0.04 H (0.00-0.03) X10*3/uL Absolute Neuts (auto) 5.8 (2.0-8.3) x10*3/uL Absolute Nucleated RBC 0.000 (0.0-0.012) X10*3/uL Nucleated RBC % (auto) 0.0 (0.0-0.2) /100WBC PT 13.0 (10.0-13.1) SEC INR 1.1 (0.9-1.1) Sodium 137 (135-145) mmol/L Potassium 4.0 (3.3-5.1) mmol/L Chloride 105 (96-108) mmol/L Carbon Dioxide 23 (22-29) mmol/L Anion Gap 13 (12-20) BUN 9 (9-16) mg/dL Creatinine 0.77 (0.5-1.4) mg/dL Estim Creat Clear Calc 130.5 Estimated GFR > 60 Random Glucose 103 (60-115) mg/dL Calcium 9.5 D (8.4-10.2) mg/dL Magnesium 1.9 (1.6-2.6) mg/dL Total Bilirubin 0.8 (0.0-1.0) mg/dL AST 22 (5-31) U/L ALT 25 (0-31) U/L Alkaline Phosphatase 86 (39-117) U/L Total Protein 8.1 H (6.5-8.0) g/dL Albumin 4.4 (3.5-5.0) g/dL Beta HCG, Quant < 2 mIU/mL Urine Color Urine Appearance Urine pH (5.0-9.0) Ur Specific [place] (1.005-1.025) Urine Protein (Neg-Trace) mg/dL Urine Glucose (UA) (Negative) mg/dL Urine Ketones (Negative) mg/dL Urine Blood (Negative) Urine Nitrite (Negative) Ur Leukocyte Esterase (Negative) Urine Test (NEGATIVE) 05/15/22 05/15/22 Range/Units 14:46 14:46 WBC (4.8-10.8) X10*3/uL RBC (4.20-5.50) X10*6/uL Hgb (12.0-16.0) g/dl Hct (37.0-47.0) % MCV (80.0-98.0) fL MCH (27.0-33.0) pg MCHC (31.0-35.0) g/dl RDW (11.0-16.0) % Plt Count (160-400) X10*3/uL MPV (9.4-12.3) fL Immature Gran % (Auto) (0.0-0.4) % Neut % (Auto) (45-73) % Lymph % (Auto) (20-40) % Marshall % (Auto) (2-11) % Eos % (Auto) (0-4) % Baso % (Auto) (0-2) % Lymph # (Auto) (1.2-4.9) X10*3/uL Marshall # (Auto) (0.1-1.2) X10*3/uL Eos # (Auto) (0.0-0.4) X10*3/uL Baso # (Auto) (0.0-0.2) X10*3/uL Abs Immat Gran (auto) (0.00-0.03) X10*3/uL Absolute Neuts (auto) (2.0-8.3) x10*3/uL Absolute Nucleated RBC (0.0-0.012) X10*3/uL Nucleated RBC % (auto) (0.0-0.2) /100WBC PT (10.0-13.1) SEC INR (0.9-1.1) Sodium (135-145) mmol/L Potassium (3.3-5.1) mmol/L Chloride (96-108) mmol/L Carbon Dioxide (22-29) mmol/L Anion Gap (12-20) BUN (9-16) mg/dL Creatinine (0.5-1.4) mg/dL Estim Creat Clear Calc Estimated GFR Random Glucose (60-115) mg/dL Calcium (8.4-10.2) mg/dL Magnesium (1.6-2.6) mg/dL Total Bilirubin (0.0-1.0) mg/dL AST (5-31) U/L ALT (0-31) U/L Alkaline Phosphatase (39-117) U/L Total Protein (6.5-8.0) g/dL Albumin (3.5-5.0) g/dL Beta HCG, Quant mIU/mL Urine Color Yellow Urine Appearance Clear Urine pH 6.0 (5.0-9.0) Ur Specific [place] 1.015 (1.005-1.025) Urine Protein Negative (Neg-Trace) mg/dL Urine Glucose (UA) Negative (Negative) mg/dL Urine Ketones Negative (Negative) mg/dL Urine Blood Negative (Negative) Urine Nitrite Negative (Negative) Ur Leukocyte Esterase Negative (Negative) Urine Test NEGATIVE (NEGATIVE) <Kevin Lee MD - Last Filed: 05/15/22 15:34> Radiology Impression Discussion of test interpretation with radiology: I have reviewed the radiologist's reading. <Kevin Lee MD - Last Filed: 05/15/22 15:34> Radiologist Impression: IMPRESSION: Markedly distended urinary bladder. If the patient was not able to void spontaneously she may benefit from placement of a Amador catheter. No radiopaque urolithiasis seen. ? There is trace right lower quadrant free fluid adjacent to an otherwise normal-appearing appendix. ? Dictated By: Kit Brody MD Signed By: <Electronically signed by Kit Brody MD in [place]> 05/15/22 1434 <Kevin Lee MD - Last Filed: 05/15/22 15:34> Discharge Plan Discharge Clinical Impression: Acute urinary retention <DEVANTE Tomlin - Last Filed: 05/15/22 12:22> Patient Disposition: Home, Self-Care <DEVANTE Tomlin - Last Filed: 05/15/22 12:22> Instructions: Acute Urinary Retention in Women (ED), Amador Catheter Placement and Care (ED) <DEVANTE Tomlin - Last Filed: 05/15/22 12:22> Prescriptions: No Action ondansetron 4 mg tablet,disintegrating 4 mg PO Q8H 4 Days Qty: 12 0RF naproxen 500 mg tablet 500 mg PO BID PRN (Reason: pain) Qty: 14 0RF diphenhydramine HCl [Benadryl] 25 mg capsule 25 mg PO Q6H PRN (Reason: nausea and vomiting) Qty: 14 0RF ondansetron 4 mg tablet,disintegrating 4 mg PO Q6-8H PRN (Reason: nausea and vomiting) Qty: 14 0RF valacyclovir [Valtrex] 1 gram tablet 1,000 mg PO BID 10 Days Qty: 20 0RF doxycycline hyclate 100 mg tablet 100 mg PO BID 7 Days Qty: 14 0RF metronidazole 500 mg tablet 500 mg PO BID 7 Days Qty: 14 0RF latanoprost 0.005 % drops 1 drp ophthalmic (eye) QPM norethindrone (contraceptive) [Holli] 0.35 mg tablet 0.35 mg PO DAILY <DEVANTE Tomlin - Last Filed: 05/15/22 12:22> [place] [facility] [place] [facility] [place] Group] - 5 days <DEVANTE Tomlin - Last Filed: 05/15/22 12:22>
[2022-05-15 12:44] VITALS: BP 146/84; PULSE 82; RESP 20; TEMP 37.1
[2022-05-15 12:48] LABS: MANUAL DIFF FLAG NO
[2022-05-15 12:50] LABS: Basophils Absolute Auto 0.1 X10*3/uL (0.0-0.2); Basophils Percent Auto 0.8 % (0-2); Eosinophils Absolute Auto 0.1 X10*3/uL (0.0-0.4); Eosinophils Percent Auto 0.7 % (0-4); Hematocrit 44.8 % (37.0-47.0); Hemoglobin 15.3 g/dl (12.0-16.0); Imm Gran Abs Auto 0.04 X10*3/uL (0.00-0.03); Imm Gran Pct Auto 0.5 % (0.0-0.4); Lymphocytes Absolute Auto 2.1 X10*3/uL (1.2-4.9); Lymphocytes Percent Auto 23.5 % (20-40); Mean Corpuscular HGB Conc 34.2 g/dl (31.0-35.0); Mean Corpuscular Hemoglobin 28.2 pg (27.0-33.0); Mean Corpuscular Volume 82.5 fL (80.0-98.0); Mean Platelet Volume 11.6 fL (9.4-12.3); Monocytes Absolute Auto 0.8 X10*3/uL (0.1-1.2); Monocytes Percent Auto 8.9 % (2-11); Neutrophils Absolute Auto 5.8 x10*3/uL (2.0-8.3); Neutrophils Percent Auto 65.6 % (45-73); Platelet Count 303 X10*3/uL (160-400); Red Blood Count 5.43 X10*6/uL (4.20-5.50); Red Cell Distribution Width 12.9 % (11.0-16.0); White Blood Count 8.9 X10*3/uL (4.8-10.8)
[2022-05-15 12:55] LABS: INTERNATIONAL NORM RATIO 1.1 (0.9-1.1)
[2022-05-15 13:21] LABS: Alanine Aminotransferase 25 U/L (0-31); Albumin Level 4.4 g/dL (3.5-5.0); Alkaline Phosphatase 86 U/L (39-117); Anion Gap 13 (12-20); Aspartate Amino Transferase 22 U/L (5-31); Bilirubin Total 0.8 mg/dL (0.0-1.0); Blood Urea Nitrogen 9 mg/dL (9-16); Calcium 9.5 mg/dL (8.4-10.2); Carbon Dioxide 23 mmol/L (22-29); Chloride 105 mmol/L (96-108); Creatinine Clr Calc Pharmacy 130.5; Estimated Glomerular Filt Rate > 60; Glucose Random 103 mg/dL (60-115); HCG Quantitative < 2 mIU/mL; Magnesium 1.9 mg/dL (1.6-2.6); Sodium 137 mmol/L (135-145); Total Protein 8.1 g/dL (6.5-8.0)
[2022-05-15 14:54] LABS: Appearance Urine Clear; Color Urine Yellow; Glucose Urine UA Negative (Negative); Leukocyte Esterase Urine Negative (Negative); Nitrite Urine Negative (Negative); Specific Gravity - Urine 1.015 (1.005-1.025); Urine Blood Negative (Negative); Urine Ketones Negative (Negative); Urine Protein Negative (Neg-Trace)
[2022-05-15 14:56] LABS: UPreg QC Valid YES; Urine Pregnancy NEGATIVE (NEGATIVE)
[2022-05-19 04:39] LABS: Syphilis Screen Nonreactive (Nonreactive)
== END 2022-05-15 15:52 | disposition home or self-care (01) ==
PROVIDERS: Physician Assistant Medical; Emergency Provider Emergency Medicine; PCP Registered Nurse
DX: R33.9 Retention of urine, unspecified (principal)
CPT/HCPCS: 36415; 51702; 51798; 74176; 80053; 81003; 81025; 83735; 84702; 85025; 85610; 86780; 99284

== ENCOUNTER 2022-05-17 09:46 | Emergency (ER) | payer MEDICAID, SELFPAY ==
[2022-05-17 09:57] VITALS: BP 155/79; PULSE 102; RESP 18; TEMP 36.7; O2SAT 100; BMI 38.9
--- NOTE | 2022-05-17 15:49 | ED.FEMALEGU ---
HPI - Female Genitourinary General Chief complaint: Urogenital-Female Stated complaint: blotted blood in urine Related Data Home Medications Medication Instructions Recorded Confirmed latanoprost 0.005 % eye drops 1 drp ophthalmic (eye) QPM 05/10/22 norethindrone (contraceptive) 0.35 0.35 mg PO DAILY 05/10/22 mg tablet (Holli) Previous Rx's Medication Instructions Recorded diphenhydramine HCl 25 mg capsule 25 mg PO Q6H PRN nausea and 08/04/21 (Benadryl) vomiting #14 caps naproxen 500 mg tablet 500 mg PO BID PRN pain #14 tabs 08/04/21 ondansetron 4 mg disintegrating 4 mg PO Q6-8H PRN nausea and 08/04/21 tablet vomiting #14 tabs ondansetron 4 mg disintegrating 4 mg PO Q8H 4 days #12 tabs 04/22/22 tablet doxycycline hyclate 100 mg tablet 100 mg PO BID 7 days #14 tabs 05/08/22 valacyclovir 1 gram tablet 1,000 mg PO BID 10 days #20 tabs 05/08/22 (Valtrex) metronidazole 500 mg tablet 500 mg PO BID 7 days #14 tabs 05/10/22 Allergies Allergy/AdvReac Type Severity Reaction Status Date / Time No Known Allergies Allergy Verified 05/15/22 12:17 [facility] Past Medical History Medical History Glaucoma Social History Social History (Updated 05/10/22 @ 15:28 by ALTHEA Hunter) Alcohol intake: never Patient Tobacco Use Status: Never used Tobacco Substance Use Type: Marijuana Current occupational status: employed Current occupation: packaging Physical Exam Vital Signs: Vital Signs: Last Vital Signs Temp 98.1 F 05/17/22 09:57 Pulse 102 H 05/17/22 09:57 Resp 18 05/17/22 09:57 BP 155/79 H 05/17/22 09:57 Pulse Ox 100 05/17/22 09:57 O2 Del Method 05/17/22 09:57 BMI result Body Mass Index 38.9 Discharge Plan Discharge Prescriptions: No Action ondansetron 4 mg tablet,disintegrating 4 mg PO Q8H 4 Days Qty: 12 0RF naproxen 500 mg tablet 500 mg PO BID PRN (Reason: pain) Qty: 14 0RF diphenhydramine HCl [Benadryl] 25 mg capsule 25 mg PO Q6H PRN (Reason: nausea and vomiting) Qty: 14 0RF ondansetron 4 mg tablet,disintegrating 4 mg PO Q6-8H PRN (Reason: nausea and vomiting) Qty: 14 0RF valacyclovir [Valtrex] 1 gram tablet 1,000 mg PO BID 10 Days Qty: 20 0RF doxycycline hyclate 100 mg tablet 100 mg PO BID 7 Days Qty: 14 0RF metronidazole 500 mg tablet 500 mg PO BID 7 Days Qty: 14 0RF latanoprost 0.005 % drops 1 drp ophthalmic (eye) QPM norethindrone (contraceptive) [Holli] 0.35 mg tablet 0.35 mg PO DAILY
--- NOTE | 2022-05-17 16:57 | ED.FEMALEGU ---
HPI - Female Genitourinary General Chief complaint: Urogenital-Female Stated complaint: blotted blood in urine Time Seen by Provider: 05/17/22 16:43 Source: patient Mode of arrival: ambulatory Limitations: no limitations History of Present Illness HPI Narrative: Patient was seen here on 05/15 for acute retention of unknown etiology Amador catheter was placed CT scan was done which was negative comes back here as she noticed slight amount of blood in the back. At this time urine is clear. Patient does have little bit suprapubic discomfort no fever no nausea no vomiting unknown cause for urinary retention patient took Benadryl about a month ago Related Data Home Medications Medication Instructions Recorded Confirmed latanoprost 0.005 % eye drops 1 drp ophthalmic (eye) QPM 05/10/22 norethindrone (contraceptive) 0.35 0.35 mg PO DAILY 05/10/22 mg tablet (Holli) Previous Rx's Medication Instructions Recorded diphenhydramine HCl 25 mg capsule 25 mg PO Q6H PRN nausea and 08/04/21 (Benadryl) vomiting #14 caps naproxen 500 mg tablet 500 mg PO BID PRN pain #14 tabs 08/04/21 ondansetron 4 mg disintegrating 4 mg PO Q6-8H PRN nausea and 08/04/21 tablet vomiting #14 tabs ondansetron 4 mg disintegrating 4 mg PO Q8H 4 days #12 tabs 04/22/22 tablet doxycycline hyclate 100 mg tablet 100 mg PO BID 7 days #14 tabs 05/08/22 valacyclovir 1 gram tablet 1,000 mg PO BID 10 days #20 tabs 05/08/22 (Valtrex) metronidazole 500 mg tablet 500 mg PO BID 7 days #14 tabs 05/10/22 Allergies Allergy/AdvReac Type Severity Reaction Status Date / Time No Known Allergies Allergy Verified 05/15/22 12:17 Review of Systems Review of Systems: Yes all other systems are reviewed and are negative PMFSH Past Medical History Medical History Glaucoma Social History Social History Alcohol intake: never Patient Tobacco Use Status: Never used Tobacco Substance Use Type: Marijuana Advance Directives: No Advance Directives Information Provided: No Current occupational status: employed Current occupation: packaging Physical Exam Vital Signs: Vital Signs: Last Vital Signs Temp 98.1 F 05/17/22 17:13 Pulse 87 05/17/22 17:13 Resp 18 05/17/22 17:13 BP 112/67 05/17/22 17:13 Pulse Ox 99 05/17/22 17:13 O2 Del Method 05/17/22 17:13 BMI result Body Mass Index 38.9 Appearance: Alert. Oriented X3. No acute distress. ENT: Pharynx normal. Oral Mucosa moist Neck: Normal inspection. Neck supple. CVS: Normal heart rate and rhythm. Pulses normal. Respiratory: No respiratory distress. Equal air entry bilateral, Abdomen: Soft and nontender. Bowel sounds are present, no mass palpable, no CVA tenderness Skin: Skin warm and dry. Normal skin color. Normal skin turgor. Neuro: Oriented X 3. No motor deficit. Medical Decision Making Medical Decision Making MDM Narrative: Bladder scan showed empty bladder uro bag with clear urine previous culture 2 days ago was negative discharge patient home Discharge Plan Discharge Clinical Impression: Amador catheter problem Patient Disposition: Home, Self-Care Instructions: Amador Catheter Placement and Care (ED) Additional Instructions: Drink plenty of water Follow-up with urologist as scheduled Prescriptions: No Action ondansetron 4 mg tablet,disintegrating 4 mg PO Q8H 4 Days Qty: 12 0RF naproxen 500 mg tablet 500 mg PO BID PRN (Reason: pain) Qty: 14 0RF diphenhydramine HCl [Benadryl] 25 mg capsule 25 mg PO Q6H PRN (Reason: nausea and vomiting) Qty: 14 0RF ondansetron 4 mg tablet,disintegrating 4 mg PO Q6-8H PRN (Reason: nausea and vomiting) Qty: 14 0RF valacyclovir [Valtrex] 1 gram tablet 1,000 mg PO BID 10 Days Qty: 20 0RF doxycycline hyclate 100 mg tablet 100 mg PO BID 7 Days Qty: 14 0RF metronidazole 500 mg tablet 500 mg PO BID 7 Days Qty: 14 0RF latanoprost 0.005 % drops 1 drp ophthalmic (eye) QPM norethindrone (contraceptive) [Holli] 0.35 mg tablet 0.35 mg PO DAILY Interventions: ED Discharge Assessment Last Done: 05/17/22 17:15 Discharge Date/Time: 05/17/22 17:17
[2022-05-17 17:13] VITALS: BP 112/67; PULSE 87; RESP 18; TEMP 36.7; O2SAT 99
--- OUTSIDE RECORDS SUMMARY | 2022-05-17 17:17 | XMS_ITS | Continuity of Care Document ---
:1995 Author Organization [facility] Address [address] [place] [address], [address] [place] [phone] Care Team Providers Name Role Phone Julianne FARMER, Leticia Choudhury Primary Care Physician Encounter [facility] Date(s): 06/23/21 - 07/23/[address] [id number] Allergies, Adverse Reactions, Alerts No Known Medication Allergies Immunizations Given and Recorded Vaccine Date Status Refusal Reason tetanus/diphtheria/pertussis, acel(Tdap) 05/18/21 Given influenza virus vaccine, inactivated 03/23/21 Given SARS-CoV-2 (COVID-19) mRNA-1273 vaccine 11/01/20 Recorded SARS-CoV-2 (COVID-19) mRNA-1273 vaccine 10/04/20 Recorded Medications ferrous gluconate 256 mg (28 mg elemental iron) oral tablet 1 tablet = 256 mg, By Mouth, Daily, # 30 tablet, 2 Refills, Maintenance, 06/16/21 9:46:00 EST, Tablet, [facility]/pharmacy #[id number], Partial fill upon patient request if the prescription is for a schedule II opioid drug., 157, cm, 06/16/21 9:26:00 EST, Height,... Start Date: 06/16/21 Status: Orderedferrous sulfate 325 mg oral enteric coated tablet 1, tablet, By Mouth, Daily, # 30 tablet, Refills 0, Route to Pharmacy Electronically, [id number], 158, cm, 07/15/21 12:44:00 EST, Height, 78.9, kg, 07/09/21 7:13:00 EST, Dry Weight Start Date: 07/15/21 Status: OrderedPNV oral tablet 1 tablet, By Mouth, Daily, # 30 tablet, 9 Refills, Maintenance, 03/23/21 11:47:00 EDT, [facility]/pharmacy #[id number], Partial fill upon patient request if the prescription is for a schedule II opioid drug., 1 tablet By Mouth Daily, 157, cm, 03/23/21 10:05:00 EDT... Start Date: 03/23/21 Status: OrderedTylenol 325 mg oral capsule 1 capsule = 325 mg, By Mouth, 3 times a day, 0 Refills, Maintenance, 03/11/21 11:18:00 EDT, Partial fill upon patient request if the prescription is for a schedule II opioid drug. 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
== END 2022-05-17 17:17 | disposition home or self-care (01) ==
LOC: HO.ED 17:15
PROVIDERS: Emergency Provider Internal Medicine; PCP Registered Nurse
DX: R31.9 Hematuria, unspecified (principal); T83.9XXA Unspecified complication of genitourinary prosthetic device, implant and graft, initial encounter; Y73.2 Prosthetic and other implants, materials and accessory gastroenterology and urology devices associated with adverse incidents; Y92.9 Unspecified place or not applicable; Z79.899 Other long term (current) drug therapy
CPT/HCPCS: 51702; 51798; 99283

== ENCOUNTER → 2022-05-26 08:54 | Outpatient (BNVA) | payer MEDICAID, SELFPAY | PROVIDERS: PCP Registered Nurse; Visit Provider Nurse Practitioner Family | DX: R33.8 Other retention of urine (principal); Z79.899 Other long term (current) drug therapy | CPT/HCPCS: 51700; 51798; 99202 ==

== ENCOUNTER → 2022-07-09 15:18 | Outpatient (BNVA) | payer MEDICAID, SELFPAY | PROVIDERS: PCP Registered Nurse; Visit Provider Nurse Practitioner Family | DX: R33.9 Retention of urine, unspecified (principal); Z79.899 Other long term (current) drug therapy | CPT/HCPCS: 51798; 99212 ==

== ENCOUNTER 2023-04-13 08:22 | Outpatient (AMB) | payer MEDICAID, SELFPAY ==
[2023-04-13 09:00] VITALS: BP 120/72; BMI 38.4
--- NOTE | 2023-04-13 09:00 | A.OFFVIS_ITS ---
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 She was trying to get for the last few months she was on controls before to regulate her periods but she stopped them in October she also attributed more frequent herpes outbreaks to taking the control pills. She was getting regular periods since she stop the pills (she had also been on the pills to regulate her periods). She denies personal history of diabetes but she has strong family history but she says her blood sugars were checked and she had checks them herself and they were good. She says she did have some high blood pressures a few times but her doctors told her she was good now and she did need to monitor anymore. She does have glaucoma and she has had to have different medications and drops in her eyes and she needs to make another appointment for follow-up. 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 She and her partner happy about the . Is her 1st she normally goes to the [facility] for primary care. She is taking gummy vitamins she is occasionally having a little nausea but nothing she can not handle. I informed her about care here and at [facility]. Given that it is her 1st and also that she is at some risk for diabetes and hypertension because of her own personal history I would recommend that she start care from the very beginning at [facility] I gave her list of all the practices and recommend she start calling today and find a practice that she feels good about going to and that will accept her insurance. In the meantime I have offered her a dating ultrasound to confirm the I also reviewed signs and symptoms miscarriage in ectopic and what she should do if there were any of those symptoms. I explained that she will probably need more careful assessment and checking in the just because of her particular risks. I also did tell her that later on in the she will probably be recommended to take valcyclovir prophylactically from 36 weeks on [facility] Medical History Retention of urine Glaucoma Social History Alcohol intake: never Patient Tobacco Use Status: Never used Tobacco Substance Use Type: Marijuana Current occupational status: employed Current occupation: packaging Female Reproductive History Menstrual Date of last menstrual period: 02/28/23 control method: none Physical Exam Vital Signs: Last Vital Signs BP 120/72 04/13/23 09:00 BMI result Body Mass Index 38.4 Results AMB Test Urine AMB Test Urine Positive Last Edit by Rose Mulligan CMA on 09:07 Results Reviewed Results Reviewed: Laboratory Last Values [facility] Positive 04/13/23 09:07 Assessment & Plan Assessment & Plan (1) Glaucoma: Code(s): H40.9 - Unspecified glaucoma (2) Positive urine test: Code(s): Z32.01 - Encounter for test, result positive (3) Family history of diabetes in : Code(s): Z83.3 - Family history of diabetes mellitus (4) Obesity: Code(s): E66.9 - Obesity, unspecified (5) COVID-19: Comment: received antivirals at [facility] last week Code(s): U07.1 - COVID-19 (6) Hx of herpes genitalis: Comment: gets freq outbreaks, take valcyclovir for 5 d for outbreaks Code(s): Z86.19 - Personal history of other infectious and parasitic diseases Plan Patient is here for test consult she had a last menstrual period 10 2- 10 5. She was trying to get for the last few months she was on controls before to regulate her periods but she stopped them in October she also attributed more frequent herpes outbreaks to taking the control pills. She was getting regular periods since she stop the pills (she had also been on the pills to regulate her periods). She denies personal history of diabetes but she has strong family history but she says her blood sugars were checked and she had checks them herself and they were good. She says she did have some high blood pressures a few times but her doctors told her she was good now and she did need to monitor anymore. She does have glaucoma and she has had to have different medications and drops in her eyes and she needs to make another appointment for follow-up. 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 She and her partner happy about the . Is her 1st she normally goes to the [facility] for primary care. She is taking gummy vitamins she is occasionally having a little nausea but nothing she can not handle. I informed her about care here and at [facility]. Given that it is her 1st and also that she is at some risk for diabetes and hypertension because of her own personal history I would recommend that she start care from the very beginning at [facility] I gave her list of all the practices and recommend she start calling today and find a practice that she feels good about going to and that will accept her insurance. In the meantime I have offered her a dating ultrasound to confirm the I also reviewed signs and symptoms miscarriage in ectopic and what she should do if there were any of those symptoms. I explained that she will probably need more careful assessment and checking in the just because of her particular risks. I also did tell her that later on in the she will probably be recommended to take valcyclovir prophylactically from 36 weeks on, Will have a quick visit after the ultrasound which I am going to request be ordered for next week and I am recommending she start calling soon to find a placed for care at [facility] now. I did inform her of early testing that may want to be done in her case also to screen for diabetes early. Orders: Orders AMB HCG Urine Test Today Z32.01 - Encounter for test, result positive US OB <= 14 weeks fetus 1 Week E66.9 - Obesity, unspecified, H40.9 - Unspecified glaucoma, U07.1 - COVID-19, Z32.01 - Encounter for test, result positive, Z83.3 - Family history of diabetes mellitus, Z86.19 - Personal history of other infectious and parasitic diseases Medications: New PNV,calcium [id number] acid 27 mg iron- 1 mg ( Vitamins Plus Low Iron) 1 tab PO DAILY 90 tabs 0RF Coding Level of Care Code New Pt Level 3 (98626) Diagnoses Glaucoma H40.9 Positive urine test Z32.01 Family history of diabetes in Z83.3 Obesity E66.9 COVID-19 U07.1 Hx of herpes genitalis Z86.19
== END 2023-04-13 09:51 | disposition home or self-care (01) ==
PROVIDERS: PCP Registered Nurse; Visit Provider Advanced Practice Midwife
DX: H40.9 Unspecified glaucoma (principal); Z32.01 Encounter for pregnancy test, result positive; Z83.3 Family history of diabetes mellitus; E66.9 Obesity, unspecified; U07.1 COVID-19; Z86.19 Personal history of other infectious and parasitic diseases
CPT/HCPCS: 99203

== ENCOUNTER → 2023-04-13 08:22 | Outpatient (BNVA) | payer MEDICAID, SELFPAY | PROVIDERS: PCP Registered Nurse; Visit Provider Advanced Practice Midwife | DX: O26.891 Other specified pregnancy related conditions, first trimester (principal); H40.9 Unspecified glaucoma; O98.519 Other viral diseases complicating pregnancy, unspecified trimester; U07.1 COVID-19; A60.00 Herpesviral infection of urogenital system, unspecified; O99.210 Obesity complicating pregnancy, unspecified trimester; E66.9 Obesity, unspecified; Z3A.00 Weeks of gestation of pregnancy not specified; Z83.3 Family history of diabetes mellitus; Z79.899 Other long term (current) drug therapy | CPT/HCPCS: 81025; 99212 ==

== ENCOUNTER 2023-04-15 15:52 | Outpatient (REF) | payer MEDICAID, SELFPAY ==
[2023-04-16 17:58] LABS: HCG Tumor Marker 29013 mIU/mL
== END 2023-04-15 15:53 | disposition home or self-care (01) ==
LOC: HO.LAB 15:52
PROVIDERS: PCP Registered Nurse; Visit Provider Registered Nurse
DX: N92.6 Irregular menstruation, unspecified (principal)
CPT/HCPCS: 36415; 84702

== ENCOUNTER 2024-09-26 09:59 | Emergency (ER) | payer MEDICAID, SELFPAY ==
[2024-09-26 10:03] VITALS: BP 167/84; PULSE 90; RESP 18; TEMP 36.6; O2SAT 98; BMI 43.1
--- NOTE | 2024-09-26 10:14 | ED_ITS ---
HPI - General Adult General Chief complaint: Back Pain/Injury Stated complaint: Back pain 1 week Time Seen by Provider: 09/26/24 10:14 Source: patient Mode of arrival: ambulatory Limitations: no limitations History of Present Illness ED Provider: Yasmin Bundy PA-C HPI narrative: Patient is a 29 year old assigned female at with a history of genital herpes and glaucoma presenting to the emergency department today with low back pain. Patient states that a week ago she lifted a 25 lbs child and has had back pain ever since. Patient denies any dizziness, lightheadedness, abdominal pain, nausea, vomiting, fever, chills, blurry vision, double vision, loss of vision, chest pain, difficulty breathing, shortness of breath, night sweats, pain with urination, increased urinary frequency, increased urinary urgency, blood in her urine or stool, syncope or a near syncopal episode, bowel incontinence, bladder incontinence, or any other complaints at this time. Onset (ago): week(s) (1) Location: back Radiation: non-radiation Exacerbating factors: movement Associated symptoms: denies other symptoms Treatments prior to arrival: none Related Data Previous Rx's ?Medication ?Instructions ?Recorded vitamin with calcium 1 tab PO DAILY #90 tabs 04/13/23 no.72-iron 27 mg-folic acid 1 mg tablet ( Vitamins Plus Low Iron) cyclobenzaprine 5 mg tablet 5 mg PO TID PRN muscle spasm 7 09/26/24 days #21 tabs prednisone 20 mg tablet 20 mg PO DAILY 5 days #5 tabs 09/26/24 Allergies Allergy/AdvReac Type Severity Reaction Status Date / Time No Known Allergies Allergy Verified 09/26/24 10:04 Review of Systems Constitutional: Constitutional: Reports no additional constitutional complaints, Denies chills, Denies fever(s) and Denies night sweats Eyes: Eyes: Reports no additional eye complaints, Denies blurry vision, Denies change in vision, Denies diplopia, Denies eye discharge, Denies loss of vision and Denies eye pain ENT: Denies dizziness Cardiovascular: Cardiovascular: Reports no additional cardiovascular complaints, Denies chest pain, Denies lightheadedness, Denies Loss of Consciousness and Denies dyspnea Respiratory: Respiratory: Reports no additional respiratory complaints and Denies dyspnea Gastrointestinal: Gastrointestinal: Reports no additional gastrointestinal complaints, Denies abdominal pain, Denies melena, Denies hematochezia, Denies change in bowel habits and Denies change in stool character Genitourinary: Genitourinary: Denies hematuria, Denies urinary frequency, Denies dysuria, Denies urinary incontinence, Denies urinary hesitancy and Denies urinary urgency Musculoskeletal: Musculoskeletal: Reports no additional musculoskeletal co mplaints, Reports back pain, Denies numbness and Denies tingling Neurologic: Denies dizziness, Denies loss of vision, Denies numbness and Denies tingling Psychiatric: Psychiatric: Reports no additional psychiatric complaints Endocrine: Endocrine: Reports no additional endocrine complaints Hematologic/Lymphatic: Hematologic/Lymphatic: Reports no additional hematologic/lymphatic complaints Allergic/Immunologic: Allergic/Immunologic: Reports no additional allergic/immunologic complaints PMFSH Past Medical History Attestation statement: The following information was validated with the patient. Source: old records reviewed and nursing notes reviewed Medical History Retention of urine Glaucoma Social History Social History Alcohol intake: never Patient Tobacco Use Status: Never used Tobacco Smoked in Last 30 Days: No Use of substances other than those prescribed or required for medical reasons: No Substance Use Type: Marijuana Advance Directives: No Advance Directives Information Provided: Yes Do you have a plan to hurt others: No Plan Current occupational status: employed Current occupation: packaging Physical Exam ED Vital Signs: Vital Signs - 24 hr 09/26/24 10:03 09/26/24 11:05 Temperature 98 F 98 F Pulse Rate 90 90 Respiratory Rate 18 18 Blood Pressure 167/84 H 158/65 H Pulse Oximetry 98 98 Oxygen Delivery Method Room Air Room Air BMI result Body Mass Index 43.1 Const General: cooperative, no acute distress, alert and awake Nutritional Appearance: well nourished Orientation/consciousness: patient oriented x3 Limitations: no limitations HENMT Head: Yes normal to inspection and Yes atraumatic Ears: hearing grossly normal bilaterally and external ears normal General nose exam: Normal external nose present, no nasal discharge noted and no epistaxis Face and sinus: Yes normal facial exam, No abrasion and No laceration Mouth: Normal oral and palatal mucosa present, no drooling and no muffled voice Eyes General: appearance normal, both eyes and all related structures Periorbital: periorbital findings normal Eyelids: Yes eyelids normal Conjunctivae: conjunctivae normal Pupils: Equal, round and reactive pupils present EOM: EOMs intact bilaterally Neck Neck: Yes normal visual inspection, Yes full ROM and Yes no lymphadenopathy Resp Effort & Inspection: normal respiratory effort and able to speak in complete sentences Back/Spine/Pelvis Cervical Spine: cervical ROM normal Thoracic/Lumbar Spine: thoraco-lumbar ROM normal Neuro General: patient oriented x3, moves all extremities and CN's II-XI intact bilaterally Cranial nerves: Yes Equal, round and reactive pupils present Cognition (Neuro): normal cognition Extrem General: Yes normal to inspection, Yes full ROM and Yes capillary refill normal Psych Appearance: grossly normal Mental Status: mental status grossly normal Affect: normal affect Attitude: cooperative Thought process: Normal thought process present Thought content: Normal thought content present Insight: Good insight present (Psych) Medical Decision Making Medical Decision Making MDM Narrative: Patient is a 29 year old assigned female at with a history of genital herpes and glaucoma presenting to the emergency department today with low back pain. Patient's physical exam was unremarkable. I explained my physical exam findings to the patient. I answered all questions asked by the patient. I stressed the importance of the patient taking her medication as directed (either prescribed or as the over the counter packaging recommends). I stressed the importance of the patient following up with her primary care provider. I stressed the importance of the patient returning to the emergency department immediately if her symptoms were to worsen or if she were to develop any dizziness, shortness of breath, difficulty breathing, chest pain, blurry vision, loss of vision, nausea, vomiting, abdominal pain, fever, chills, back pain, or any other complaints. Patient verbalized agreement and understanding with this treatment plan and discharge. Differential Diagnosis Differential Diagnoses: The differential diagnosis associated with the presentation includes Low back pain Lumbar strain Lumbar sprain Admission/Observation Consideration of admission/observation: Escalation of care including admission/observation considered Patient would have been admitted to the hospital had her clinical presentation warranted hospital admission. Tests considered The following testing was considered but not selected: I considered obtaining a lumbar x-ray however, patient's current clinical presentation and mechanism of injury did not warrant this. I discussed this with the patient who verbalized understanding and agreement. Prescription Management I considered prescription management with: Pain Medication (patient prescribed pain medication) Discharge Plan Discharge Clinical Impression: Lumbar strain Patient Disposition: Home, Self-Care Instructions: Acute Low Back Pain (ED) Additional Instructions: Follow up with your primary care provider. Return to the emergency department immediately if your symptoms worsen or if you develop any numbness, tingling, dizziness, shortness of breath, difficulty breathing, chest pain, blurry vision, loss of vision, nausea, vomiting, abdominal pain, fever, chills, back pain, or any other complaints. Please see the information below about our Patient Portal. If you are not yet enrolled in the [facility] Patient Portal, you will receive an enrollment email invitation following your visit to any [facility] setting. You may also self-enroll in the Patient Portal by visiting our website: [email or web address] The following information is required to access the Patient Portal: - Your [facility] Medical Record Number - Your personal home email address (must match what is in your electronic medical record, Registration staff can assist with this) - Name - Date of Capabilities of the Patient Portal: - Message some providers - View upcoming appointments - Access your health summary, medical history, and visit history - View current conditions and allergies - View procedure and lab results - View your medications, including guidelines, side effects, and precautions - Complete pre-appointment questionnaires requested by your provider - Ready summary reports of your office visits and procedures To access the Patient Portal Mobile Sonya, follow these directions: - Search [employer] in the Sonya Store or Google hi5 Store - Download the Sonya - Search for [facility] - Enter your login/password Prescriptions: New cyclobenzaprine 5 mg tablet 5 mg PO TID PRN (Reason: muscle spasm) 7 Days Qty: 21 0RF prednisone 20 mg tablet 20 mg PO DAILY 5 Days Qty: 5 0RF No Action Vitamin Plus Low Iron 27 mg iron- 1 mg tablet 1 tab PO DAILY Qty: 90 0RF Referrals: Fabi Santoro FNP [Primary Care Provider] - Interventions: ED Discharge Assessment Last Done: 09/26/24 11:05 Discharge Date/Time: 09/26/24 11:13 Print Language: Estonian
[2024-09-26 11:05] VITALS: BP 158/65; PULSE 90; RESP 18; TEMP 36.6; O2SAT 98
--- OUTSIDE RECORDS SUMMARY | 2024-09-26 12:09 | XMS_ITS | Encounter Summary ---
Author Organization [employer] Address [address] [place] [address] Care Team Providers Care Manager Product Support Name Role Phone Fabi Santoro Primary Care Provider [phone] Reason for Visit * Reason Onset Date Comments Care Management 09/21/2024 [facility] TC #[id number] Encounter Details Date Type Department Care Team ([facility] st Contact Info) Description 09/21/2024 Telephone [facility] MEDICINE [address] [place] [address] Fabi Santoro FNP [address] [place] [address] Care Management (C3 TC #[id number]) Social History Tobacco Use Types Packs/Day Years Used Date Smoking Tobacco: Never Smokeless Tobacco: Never Housing Stability Answer Date Recorded What is your housing situation today? I have lorena claire 05/13/[address] you li ve. Do you have problems with any of the following? None of the above 05/13/2023 Food Insecurity Answer Date Recorded Within the past 12 months, y ou worried that your food would run out before you got money to buy more: Never True 05/13/2023 Within the past 12 months,th e food you bought just didn't last and you didn't have enough money to get more: Never True Transportation Answer Date Recorded In the past 12 months, has l ack of transportation kept you from medical appts, meetings, work or from getting things needed for daily living? No 05/13/2023 Utilities Answer Date Recorded In the past 12 months, has t he electric, gas, oil or water company threatened to shut off services in your home? No 05/13/2023 Comments Unknown Sex and Gender Information Value Date Recorded Sex Assigned at Female 03/29/2022 10:36 AM EDT Legal Sex Female 10:36 AM EDT Gender Identity Female 03/29/2022 10:36 AM EDT Sexual Orientation Choose not to disclose 2021 10:36 AM EDT documented as of this encounter Miscellaneous Notes * Telephone Encounter - Patti Leos - 09/21/2024 12:07 PM EDT CM Patti Leos RN placed outbound call to patient for follow up call. No answer at this time.LVM introducing herself from [facility] CM Department. Requested call back. CM reinforced direct contact information or CHW for any additional questions or concerns. Education provided on [facility] located in [facility] of [facility]. Patient provided with after-hours line for [facility], , which offer night time triage service and option to transfer toon call provider if needed. CM will attempt another follow up call within 1 month. documented in this encounter Plan of Treatment Not on file documented as of this encounter Visit Diagnoses Not on filedocumented in this encounter Care Teams Manager Product Support Relationship Specialty Start Date End Date Fabi Santoro FNP [address] [place] [id number] PCP - General Family Medicine 11/23/21 Patti Leos Delivery Technician 05/27/23 documented as of this encounter
--- OUTSIDE RECORDS SUMMARY | 2024-09-26 12:09 | XMS_ITS | Encounter Summary ---
Author Organization [employer] Address [address] [place] [address] Care Team Providers Care Billet Examiner Name Role Phone Fabi Santoro Primary Care Provider [phone] Encounter Details Date Type Department Care Team (Late st Contact Info) Description 05/11/2022 Abstract [facility] D[facility]AL [address] [place] [address] Wild Pepper, DMD [address] [place] [address] Social History Tobacco Use Types Packs/Day Years Used Date Smoking Tobacco: Never Assessed Comments Unknown Sex and Gender Information Value Date Recorded Sex Assigned at Female 03/29/2022 10:36 AM EDT Legal Sex Female 10:36 AM EDT Gender Identity Female 03/29/2022 10:36 AM EDT Sexual Orientation Choose not to disclose 2021 10:36 AM EDT documented as of this encounter Plan of Treatment Not on file documented as of this encounter Visit Diagnoses Not on filedocumented in this encounter Care Teams Billet Examiner Relationship Specialty Start Date End Date Fabi Santoro FNP [address] [place] [address] PCP - General Family Medicine 11/23/21 Patti Leos Hotel Reservationist 05/27/23 documented as of this encounter
--- OUTSIDE RECORDS SUMMARY | 2024-09-26 12:09 | XMS_ITS | Encounter Summary ---
Author Organization [employer] Address [address] [place] [address] Care Team Providers Care Woodworking Belt Sander Name Role Phone Fabi Santoro Primary Care Provider Encounter Details Date Type Department Care Team (Latest Contact Info) Description 01/20/2022 Abstract [facility] CONVERSIONS Dental, Provider, DDS Social History Tobacco Use Types Packs/Day Years [...] on filedocumented in this encounter Care Teams Woodworking Belt Sander Relationship Specialty Start Date End Date Fabi Santoro FNP [address] [place] [id number] PCP - General Family Medicine 11/23/21 Patti Leos Sole Rougher 05/27/23 documented as of this encounter
--- OUTSIDE RECORDS SUMMARY | 2024-09-26 12:09 | XMS_ITS | Encounter Summary ---
Author Organization [employer] Address [address] [place] [address] Care Team Providers Care Engineering Administrator Name Role Phone Fabi Santoro Primary Care Provider [phone] Encounter Details Date Type Department Care Team (Latest Contact Info) Description 05/08/2019 Abstract [facility] CONVERSIONS Dental, Provider, DDS Social History Tobacco [...] on filedocumented in this encounter Care Teams Engineering Administrator Relationship Specialty Start Date End Date Fabi Santoro FNP [address] [place] [address] PCP - General Family Medicine 11/23/21 Patti Leos Hot End Operator 05/27/23 documented as of this encounter
--- OUTSIDE RECORDS SUMMARY | 2024-09-26 12:09 | XMS_ITS | Encounter Summary ---
Author Organization [employer] [facility] Address [address] [place] [address] Care Team Providers Care Tractor Expert Name Role Phone Fabi Santoro Primary Care Provider [phone] Encounter Details Date Type Department Care Team (Late st Contact Info) Description 05/14/2022 Orders Only [facility] MEDICINE [address] [place] [address] Luz Maria Garcia, RN Social History Tobacco Use Types Packs/Day Years [...] on filedocumented in this encounter Care Teams Tractor Expert Relationship Specialty Start Date End Date Fabi Santoro FNP [address] [place] [address] PCP - General Family Medicine 11/23/21 Patti Leos Web Project Manager 05/27/23 documented as of this encounter
--- OUTSIDE RECORDS SUMMARY | 2024-09-26 12:09 | XMS_ITS | Clinical Summary ---
Author Organization [employer] [facility] Address [address] [facility] 7t [place] [address] Care Team Providers Care Residential Sales Rep Name Role Phone Fabi Santoro Primary Care Provider [phone] Allergies No known active allergies Medications latanoprost (Xalatan) 0.005 % ophthalmic solution Administer 1 drop into affected eye(s) at bed time. Active sodium chloride (Collingsworth) 0.65 % nasal spray Use 1-2 drops by intranasal route as needed for nasal congestion 2 Active valACYclovir (Valtrex) 1 g tabletIndicatio ns:HSV (herpes simplex virus) infection TAKE 1 TABLET BY MOUTH EVERY DAY FOR 5 DAYS NEEDED FOR FLARE OF HSV (START A ONSET OF SYMPTOMS) 15 tablet 1 3 Active Encounters Date Type Department Care Team Description 09/21/2024 Telephone [facility] MEDICINE [address] [place] [id number] Fabi Santoro FNP Care Management ([facility] TC #2-lvm) 08/22/2024 Telephone [facility] MEDICINE [address] [place] [address] Fabi Santoro FNP Care Management ([facility] TC #1-lvm) 08/10/2024 Population Health Risk Score [facility] (C3) Department [address] [phone] Provider, Population Health Generic 07/26/2024 Telephone [facility] MEDICINE [address] [place] [address] Fabi Santoro FNP Care Management ([facility] follow up call) 06/28/2024 Telephone [facility] MED[facility]INE [address] [place] [address] Patti Leos Care Management ([facility] TC #1-lvm) from Last 3 Months Social History Tobacco Use Types Packs/Day Years Used Date Smoking Tobacco: Never Smokeless Tobacco: Never Tobacco Cessation:Counseling Given: Not Answered Housing Stability Answer Date Recorded What is [...] not to disclose 2021 10:36 AM EDT Last Filed Vital Signs Vital Sign Reading Time Taken Comments Blood Pressure 140/78 06/06/2023 2:49 PM EST Pulse 102 06/06/2023 1:57 PM EST Temperature 36.5 ??C (97.7 ??F) 06/06/2023 1:57 PM ES T Respiratory Rate 22 06/06/2023 1:57 PM EST Oxygen Saturation 98% 06/06/2023 1:57 PM EST Inhaled Oxygen Concentration - - Weight 101 kg (222 lb 4 oz) 06/06/2023 1:[address] Height 162.6 cm (5' 4 ) 06/06/2023 1:57 PM EST Body Mass Index 38.15 06/06/2023 1:57 PM EST Plan of Treatment Health Maintenance Due Date Last Done Comments Depression Screening 1997 Alcohol/Substance Use Screening 2009 Family Planning (PISQ) 02/10/2012 Hepatitis B Vaccines (1 of 3 - 19+ 3-dose series) 02/10/2016 Dental X-Ray: Full Mouth 04/04/2022 04/03/2019 Dental Oral Exam 07/24/2022 01/20/2022, 04/03/2019 Dental Prophylaxis 07/24/2022 01/20/2022, 05/08/2019 Dental X-Ray: Bitewings 01/21/2023 01/21/20 22, 04/03/2019 Colposcopy 12/05/2023 COVID-19 Vaccine ( - 2023-2 5 season) 2024 10/15/2020, 09/17/2020 Influenza Vaccine (#1) 2024 , 03/11/2020 SDOH Screening 05/13/2024 05/13/2023 Tobacco Screening 03/13/2025 03/13/2024 Pap Smear 05/24/2026 05/24/2023 DTaP/Tdap/Td Vaccines (2 - T d or Tdap) 04/02/2032 04/02/2022, 03/26/2022 Zoster Vaccines (1 of 2) 2047 RSV Patients and Patients Aged 60 years or older (1 - 1-dose 75+ series) 02/10/2072 HIV Screening Completed 03/30/2022 Hepatitis C Screening Completed 03/30/2022 HIB Vaccines Aged Out No longer eligi ble based on patient's age to complete this topic HPV Vaccines Aged Out No longer eligi ble based on patient's age to complete this topic Hepatitis A Vaccines Aged Out No long er eligible based on patient's age to complete this topic IPV Vaccines Aged Out No longer eligi ble based on patient's age to complete this topic Meningococcal Vaccine Aged Out No christopher joe eligible based on patient's age to complete this topic Pneumococcal Vaccine: Pediatrics (0 to 5 Years) and At-Risk Patients (6 to 49) Years) Aged Out No longer eligible b ased on patient's age to complete this topic RSV under 20 months Aged Out No longe r eligible based on patient's age to complete this topic Rotavirus Vaccines Aged Out No longer eligible based on patient's age to complete this topic Procedures Procedure Name Priority Date/Time Associated Diagnosis Comments HM PAP/HPV Routine 05/24/2023 ZZZ HISTORICAL HEPATITIS C AB W/REFL TO HCV RNA, QN, PCR Routine 03/30/2022 9:03 AM EDT HIV 1/2 ANTIGEN/ANTIBODY, FOURTH GENERATION W/RFL Routine 03/30/2022 9:03 AM EDT PROPHYLAXIS - ADULT Routine 01/20/2022 1 2:00 AM EDT BITEWINGS - 4 RADIOGRAPHIC IMAGES Routine 01/20/2022 12:00 AM EDT PERIODIC ORAL EVALUATION - ESTABLISHED PATIENT Routine 01/20/2022 12:00 AM EDT INTRAORAL - COMPLETE SERIES OF RADIOGRAPHIC IMAGES Routine 04/03/2019 12:00 AM EST from Last 3 Months or Most Recently Relevant to Health Maintenance Results * (ABNORMAL) Pap Smear (05/24/2023) Pap Epithelial cell abnormality(A ) Negative for intraephithelial lesion or malignancy, Other HPV Detected(A) Undetected, Indeterminate, Quantitative, Not Detected Historical Provider HEALTH MAINTENANCE Final Result * HEPATITIS C AB W/REFL TO HCV RNA, QN, PCR (03/30/2022 9:03 AM EDT) HEPATITIS C ANTIBODY NON-REACTI VE NON-REACT BRIGIDA CONVERTED LEGACY LABS INDEX 0.13 <1.00 CONVERTED LEGACY LABS Comment: ?? HCV antibody was non-reactive. There is no laboratory ?? evidence of HCV infection. ?? In most cases, no further action is required. However, if recent HCV exposure is suspected, a test for HCV RNA (test code 79288) is suggested. ?? For additional information please refer to http://education.[employer]/faq/UMR54r0 (This link is being provided for informational/ educational purposes only.) ?? 03/30/2022 9:03 AM EDT Fabi LARAP HISTORICAL/NON ORDERABLE LABS Final Result Performing Organization Address [facility] de Phone Number CONVERTED LEGACY LABS * HIV 1/2 ANTIGEN/ANTIBODY,FOURTH GENERATION W/RFL (03/30/2022 9:03 AM EDT) HIV-1/2 ANTIGEN AND ANTIBODIES, 4TH GENERATION W/ REFLEX NON-REACT BRIGIDA NON-REACT BRIGIDA CONVERTED LEGACY LABS Comment: HIV-1 antigen and HIV-1/HIV-2 antibodies were not detected. There is no laboratory evidence of HIV infection. ?? PLEASE NOTE: This information has been disclosed to you from records whose confidentiality may be protected by state law. ??If your state requires such protection, then the state law prohibits you from making any further disclosure of the information without the specific written consent of the person to whom it pertains, or as otherwise permitted by law. A general authorization for the release of medical or other information is NOT sufficient for this purpose. ? For additional information please refer to http://education.[employer]/faq/POK150 (This link is being provided for informational/ educational purposes only.) ? The performance of this assay has not been clinically validated in patients less than 2 years old. ?? 03/30/2022 9:03 AM EDT Fabi NGUYEN LAB BLOOD ORDERABLES Final Res ult Performing Organization Address [facility] de Phone Number CONVERTED LEGACY LABS from Last 3 Months or Most Recently Relevant to Health Maintenance Insurance [facility] C3 HSN PARTIAL Member Subscriber Plan / Payer (Ef fective 2023-Present) Name:Candelaria Lewis Relation to Subscriber:Self Name:Candelaria Lewis Payer ID:Not on file Group ID:Not on file Type:Not on file Address: [address] [place] [id number] Care Teams Residential Sales Rep Relationship Specialty Start Date End Date Fabi Santoro FNP [address] [place] [id number] PCP - General Family Medicine 11/23/21 Patti Leos Winding Lathe Operator 05/27/23
== END 2024-09-26 11:13 | disposition home or self-care (01) ==
PROVIDERS: Emergency Provider Emergency Medicine; PCP Registered Nurse
DX: S39.012A Strain of muscle, fascia and tendon of lower back, initial encounter (principal); X50.0XXA Overexertion from strenuous movement or load, initial encounter; Y93.89 Activity, other specified; Y92.9 Unspecified place or not applicable; Y99.9 Unspecified external cause status
CPT/HCPCS: 99283; 99284

== ENCOUNTER 2025-03-21 08:39 | Outpatient (REF) | payer MEDICAID, SELFPAY ==
--- OUTSIDE RECORDS SUMMARY | 2025-03-21 09:10 | XMS_ITS | Encounter Summary ---
Author Organization [employer] [facility] Address [address] [facility] 7 [place] [address] Care Team Providers Care Glass Deposition Tender Name Role Phone Fabi Santoro Primary Care Provider [phone] Encounter Details Date Type Department Care Team (Latest Contact Info) Description 05/08/2019 Abstract [facility] CONVERSIONS Dental, Provider, DDS Social [...] as of this encounter Plan of Treatment Upcoming Encounters Date Type Department Care Team (Late st Contact Info) Description 04/15/2025 4:00 PM EST Office Visit [facility] CHC MED & PEDS [address] [place] [address] Fabi Santoro FNP [address] [place] [address] 07/04/2025 1:00 PM EST Office Visit [facility] OPTOMETRY [address] [place] [address] TarkaZee, OD [address] [place] [address] documented as of this encounter Visit Diagnoses Not on filedocumented in this encounter Care Teams Glass Deposition Tender Relationship Specialty Start Date End Date Fabi Santoro FNP [address] [place] [address] PCP - General Family Medicine 11/23/21 documented as of this encounter
--- OUTSIDE RECORDS SUMMARY | 2025-03-21 09:10 | XMS_ITS | Encounter Summary ---
Author Organization [employer] [facility] Address [address] [facility] 7 [place] [address] Care Team Providers Care Body Painter Name Role Phone Fabi Santoro Primary Care Provider [phone] Encounter Details Date Type Department Care Team (Latest Contact Info) Description 01/20/2022 Abstract [facility] CONVERSIONS Dental, Provider, DDS Social History Tobacco [...] Description 04/15/2025 4:00 PM EST Office Visit [facility] CHC MED & PEDS [address] [place] [address] Fabi Santoro FNP [address] [place] [address] 07/04/2025 1:00 PM EST Office Visit [facility] OPTOMETRY [address] [place] [address] TarkaZee, OD [address] [place] [address] documented as of this encounter Visit Diagnoses Not on filedocumented in this encounter Care Teams Body Painter Relationship Specialty Start Date End Date Fabi Santoro FNP [address] [place] [address] PCP - General Family Medicine 11/23/21 documented as of this encounter
--- OUTSIDE RECORDS SUMMARY | 2025-03-21 09:10 | XMS_ITS | Encounter Summary ---
Author Organization [employer] Address [address] 7[address] h Floor [address] Care Team Providers Care Asphalt Surface Heater Operator Name Role Phone Fabi Santoro BELT NOTCHER Primary Care Provider [phone] Encounter Details Date Type Department Care Team ([facility] st Contact Info) Description 11/14/2024 Orders Only [facility] CHC MED & PEDS [address] [place] [address] Provider, MD Ade Social History Tobacco Use Types Packs/Day Years Used Date Smoking Tobacco: Never Smokeless Tobacco: Never Housing Stability Answer Date Recorded What is your housing situation today? I have lorenajarred claire 05/13/[address] you [...] Description 04/15/2025 4:00 PM EST Office Visit [facility] CHC MED & PEDS [address] [place], [place] [phone] Fabi Santoro FNP [address] [place] [address] 07/04/2025 1:00 PM EST Office Visit [facility] OPTOMETRY [address] [place] [address] TarkaZee, OD [address] [place] [address] documented as of this encounter Procedures Procedure Name Priority Date/Time Associated Diagnosis Comments BIOPSY CERVIX Routine 10/01/2024 10:49 AM EDT documented in this encounter Results * Biopsy cervix (10/01/2024 10:49 AM EDT) us Historical Provider MD IN CLINIC/BEDSIDE ORDERAB LES Final Result documented in this encounter Visit Diagnoses Not on filedocumented in this encounter Care Teams Asphalt Surface Heater Operator Relationship Specialty Start Date End Date Fabi Santoro FNP [address] [place] [address] PCP - General Family Medicine 11/23/21 documented as of this encounter
--- OUTSIDE RECORDS SUMMARY | 2025-03-21 09:10 | XMS_ITS | Encounter Summary ---
Author Organization [employer] [facility] Address [address] [facility] 7t [place] [address] Care Team Providers Care Java Web Application Developer Name Role Phone Fabi Santoro Primary Care Provider [phone] Encounter Details Date Type Department Care Team (Late st Contact Info) Description 05/14/2022 Orders Only [facility] MEDICINE [address] [place] [address] Luz Maria Garcia, RN Social History Tobacco [...] Description 04/15/2025 4:00 PM EST Office Visit [facility] CHC MED & PEDS [address] [place] [address] Fabi Santoro FNP [address] [place] [address] 07/04/2025 1:00 PM EST Office Visit [facility] OPTOMETRY [address] [place] [address] TarZee moreno, OD [address] [place] [address] documented as of this encounter Visit Diagnoses Not on filedocumented in this encounter Care Teams Java Web Application Developer Relationship Specialty Start Date End Date Fabi Santoro FNP [address] [place] [address] PCP - General Family Medicine 11/23/21 documented as of this encounter
--- OUTSIDE RECORDS SUMMARY | 2025-03-21 09:10 | XMS_ITS | Encounter Summary ---
Author Organization [employer] Address [address] [facility] 7 [place] [address] Care Team Providers Care Surgical Services Manager Name Role Phone Fabi Santoro Primary Care Provider [phone] Encounter Details Date Type Department Care Team (Late Contact Info) Description 05/11/2022 Abstract [facility] ADULT DENTAL [address] [place] [address] Wild Pepper, PAULINA [address] [place] [address] Social History Tobacco Use Types Packs/Day Years [...] Encounters Date Type Department Care Team (Late Contact Info) Description 04/15/2025 4:00 PM EST Office Visit [facility] CHC MED & PEDS [address] [place] [address] Fabi Santoro FNP [address] [place] [address] 07/04/2025 1:00 PM EST Office Visit [facility] OPTOMETRY [address] [place] [address] Zee Dobbs, OD [address] [place] [address] documented as of this encounter Visit Diagnoses Not on filedocumented in this encounter Care Teams Surgical Services Manager Relationship Specialty Start Date End Date Fabi Santoro FNP [address] [place] [address] PCP - General Family Medicine 11/23/21 documented as of this encounter
--- OUTSIDE RECORDS SUMMARY | 2025-03-21 09:10 | XMS_ITS | Clinical Summary ---
Author Organization [employer] Address [address] [facility] [facility] [address] [place] [address] Care Team Providers Care V Belt Builder Name Role Phone Linseyevelyne Fabi WENDY Primary Care Provider [phone] Allergies No known active allergies Medications * This document contains information received from the source organization and may not represent a complete record from that organization. latanoprost (Xalatan) 0.005 % ophthalmic solution Administer 1 drop into affected eye(s) at bed time. Active valACYclovir (Valtrex) 1 g tabletIndicati ons:HSV (herpes simplex virus) infection TAKE 1 TABLET BY MOUTH EVERY DAY FOR 5 DAYS NEEDED FOR FLARE OF HSV (START A ONSET OF SYMPTOMS) 15 tablet 3 03/04/20 25 Active sodium chloride (Yuba) 0.65 % nasal spray Use 1-2 drops by intranasal route as needed for nasal congestion 03/26/20 22 025 Discontinued( erapy completed) valACYclovir (Valtrex) 1 g tabletIndicati ons:HSV (herpes simplex virus) infection TAKE 1 TABLET BY MOUTH EVERY DAY FOR 5 DAYS NEEDED FOR FLARE OF HSV (START A ONSET OF SYMPTOMS) 15 tablet 1 10/13/19 23 025 Discontinued(Re order (will not trigger notification to Pharmacy)) cyclobenzaprin e (Flexeril) 5 MG tablet Take 5 mg by mouth if needed in the morning, at noon, and at bedtime for muscle spasms. 09/27/19 25 025 Discontinued( erapy completed) Active Problems Problem Noted Date Diagnosed Date Adjustment disorder with mixed anxiety and depre ssed mood 03/11/2025 Healthcare maintenance 03/05/2025 Overview (03/05/2025): - Pap: LGSIL/HPV neg 06/14/24, completed colpo 10/01/24. Following with [facility] PENSIONHOLDER INFORMATION CLERK. - Last PE: 03/04/25 - CEE: request placed 03/04/25 for [facility] Eye care Assessment & Plan (03/05/2025 1:07 PM EDT): - Plan to request records from [facility] OBGYN Low back pain at multiple sites 03/05/2025 Assessment & Plan (03/05/2025 1:24 PM EDT): - Musculoskeletal back pain, likely myofascial in origin, not vertebral. No red flag symptoms on exam. - Recommended trial of topical therapies, warm showers/baths, and home back pain exercises. Will consider physical therapy referral if insurance coverage changes. Elevated blood pressure reading 03/05/2025 Assessment & Plan (03/05/2025 1:30 PM EDT): - Initial BP reading 160/102, repeat 150s/90s. Asymptomatic. - Plan: record home BP readings, f/up in 4-6 weeks with PCP. Sooner if readings continue to remain elevated at home. F/up precautions reviewed. Hx of herpes genitalis 03/04/2025 Assessment & Plan (03/05/2025 1:20 PM EDT): - HSV infection requiring ongoing management. - Will renew Valtrex prescription for HSV management (episodic treatment). Consider suppressive treatment if frequent recurrences. Hyperlipidemia 04/04/2022 Anxiety 03/28/2022 Assessment & Plan (03/05/2025 1:22 PM EDT): No acute concerns/crisis, but in agreement with [facility] for further evaluation and management Glaucoma 03/28/2022 Assessment & Plan (03/05/2025 1:22 PM EDT): - Previously following with [facility], although unable to schedule follow up at this time with that office given provider left and insurance updated - Placed updated referral to ophthalmology for glaucoma management. Advised to follow up with referral team to identify a specialist who accepts current insurance. Advised to continue monitoring vision and symptoms. Appointment request a complete eye exam at [facility] generated 03/04/25. 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 Date Type Department Care Team Description 03/04/2025 1:15 PM EDT Office Visit [facility] [address] [place] [address] Fabi Santoro FNP Encounter for routine history and physical examination of adult (Primary Dx); Encounter for immunization; HSV (herpes simplex virus) infection; Glaucoma, unspecified glaucoma type, unspecified laterality; Anxiety; Healthcare maintenance; Dietary counseling; Exercise counseling; Hx of herpes genitalis; Low back pain at multiple sites; Elevated blood pressure reading 03/04/2025 Travel 03/03/2025 Travel 03/01/2025 Telephone [facility] [address] [place] [address] Fabi Santoro FNP Chart Prep 02/25/2025 Patient Outreach [facility] [address] [place], [place] [phone] Fabi Santoro FNP Pre-visit Planning (Pre visit planning LVM ) from Last 3 Months Immunizations Immunization Administration Dates Next Due Hep B, adult 03/04/2025 Influenza injectable quadrivalent preservative f ree 03/26/2022,03/11/2020 Influenza, seasonal, injectable, preservative fr ee 03/04/2025 TD (adult), 2 Lf tetanus tox oid, preservative free, adsorbed 03/26/2022 Tdap 09/14/2023,04/02/2022 Family History Medical History Relation Name Comments Diabetes Father Hypertension Father epilepsy Father sickle cell Father oral cancer Maternal Grandfather Glaucoma Mother Hypertension Mother Hypothyroidism Mother Diabetes Paternal Grandfather Hypertension Paternal Grandfather Breast cancer Paternal Grandmother Hypertension Paternal Grandmother Diabetes Sister Hypothyroidism Sister Relation Name Status Comments Father Maternal Grandfather Mother Paternal Grandfather Paternal Grandmother Sister Social History Tobacco Use Types Packs/Day Years Used Date Smoking Tobacco: Never Smokeless Tobacco: Never Tobacco Cessation:Counseling Given: Not Answered Alcohol Use Standard Drinks/Week Comments Never 0 (1 standard drink = 0.6 oz pur e alcohol) Depression Answer Date Recorded Patient Health Questionnaire-9 Score 16 03/11/2025 Patient Health Questionnaire-9 Score 16 03/11/2025 Last PHQ-9: Questionnaire Data Not on file 1 Housing Stability Answer Date Recorded What is your housing situation today? I have lorena claire 03/05/[address] you li ve. Do you have problems with any of the following? None of the above 03/05/2025 Food Insecurity Answer Date Recorded Within the past 12 months, y ou worried that your food would run out before you got money to buy more: Sometimes True 2024 Within the past 12 months,th e food you bought just didn't last and you didn't have enough money to get more: Never True 03/05/2025 Transportation Answer Date Recorded In the past 12 months, has l ack of transportation kept you from medical appts, meetings, work or from getting things needed for daily living? No 03/05/2025 Utilities Answer Date Recorded In the past 12 months, has t he electric, gas, oil or water company threatened to shut off services in your home? No 03/05/2025 Depression Answer Date Recorded Patient Health Questionnaire-2 Score 4 03/11/2025 Internet Access Answer Date Recorded Internet Access Q1 Yes 03/05/2025 Internet Access Q2 Not on file 03/05/2025 Comments Unknown Intention Date Recorded No desire to become (finding) 1 Sex and Gender Information Value Date Recorded Sex Assigned at Female 03/29/2022 10:36 AM EDT Legal Sex Female 10:36 AM EDT Gender Identity Female 03/29/2022 10:36 AM EDT Sexual Orientation Choose not to disclose 2021 10:36 AM EDT Last Filed Vital Signs Vital Sign Reading Time Taken Comments Blood Pressure 160/102 03/04/2025 1:09 PM EDT Pulse 80 03/04/2025 1:09 PM EDT Temperature 37.4 C (99.3 F) 03/04/2025 1:09 PM EDT Respiratory Rate 20 03/04/2025 1:09 PM EDT Oxygen Saturation 98% 03/04/2025 1:09 PM EDT Inhaled Oxygen Concentration - - Weight 118 kg (260 lb 6.4 oz) 03/04/2025 1:09 PM EDT Height 164 cm (5' 4.57 ) 03/04/2025 1:09 PM EDT Body Mass Index 43.92 03/04/2025 1:09 PM EDT Plan of Treatment Upcoming Encounters Date Type Department Care Team (Late st Contact Info) Description 04/15/2025 4:00 PM EST Office Visit [facility] [address] [place], [place] [phone] Fabi Santoro, [employer] TECHNICIAN [address] [place] [address] 07/04/2025 1:00 PM EST Office Visit [facility] [address] [place], [place] [phone] TarkaZee, OD [address] [place] [address] Health Maintenance Due Date Last Done Comments Alcohol/Substance Use Screening 2009 HPV Vaccines (1 - 3-dose series) 02/10/2012 Dental X-Ray: Full Mouth 04/04/2022 04/03/2019 Dental Oral Exam 07/24/2022 01/20/2022, 04/03/2019 Dental Prophylaxis 07/24/2022 01/20/2022, 05/08/2019 Dental X-Ray: Bitewings 01/21/2023 01/21/20 22, 04/03/2019 COVID-19 Vaccine (3 - 2024-2 6 season) 2025 10/15/2020, 09/17/2020 Hepatitis B Vaccines (2 of 3 - 19+ 3-dose series) 04/01/2025 03/04/2025 Depression Monitoring 09/09/2025 03/11/2025 , 03/11/2025 HPV/Cotest 10/01/2025 05/24/2023 Pap Smear 10/01/2025 05/24/2023 Disability Screening 03/03/2026 03/03/2025 Tobacco Screening 03/04/2026 03/04/2025 Family Planning (PISQ) 03/05/2026 03/05/2025 SDOH Screening 03/05/2026 03/05/2025 Lipid Panel 03/30/2027 03/30/2022 DTaP/Tdap/Td Vaccines (3 - T d or Tdap) 09/13/2033 09/14/2023, 04/02/2022, 03/26/2022 Zoster Vaccines (1 of 2) 2047 RSV Patients and Patients Aged 60 years or older (1 - 1-dose 75+ series) 02/10/2072 HIV Screening Completed 03/30/2022 Hepatitis C Screening Completed 03/30/2022 Colposcopy Completed 10/01/2024 Influenza Vaccine Completed 03/04/2025, 03/26/2022, 03/11/2020 HIB Vaccines Aged Out No longer eligi ble based on patient's age to complete this topic Hepatitis A Vaccines Aged Out No long er eligible based on patient's age to complete this topic IPV Vaccines Aged Out No longer eligi ble based on patient's age to complete this topic Meningococcal B Vaccine Aged Out No l onger eligible based on patient's age to complete this topic Meningococcal Vaccine Aged Out No christopher joe eligible based on patient's age to complete this topic Pneumococcal Vaccine: Pediatrics (0 to 5 Years) and At-Risk Patients (6 to 49) Years Aged Out No longer eligible b ased on patient's age to complete this topic RSV under 20 months Aged Out No longe r eligible based on patient's age to complete this topic Rotavirus Vaccines Aged Out No longer eligible based on patient's age to complete this topic Procedures Procedure Name Priority Date/Time Associated Diagnosis Comments BIOPSY CERVIX Routine 10/01/2024 10:49 AM EDT HM PAP/HPV Routine 05/24/2023 ZZZ HISTORICAL HEPATITIS C AB W/REFL TO HCV RNA, QN, PCR Routine 03/30/2022 9:03 AM EDT HIV 1/2 ANTIGEN/ANTIBODY, FOURTH GENERATION W/RFL Routine 03/30/2022 9:03 AM EDT LIPID PANEL, STANDARD Routine 03/30/2022 9:03 AM EDT PROPHYLAXIS - ADULT Routine 01/20/2022 1 2:00 AM EDT BITEWINGS - 4 RADIOGRAPHIC IMAGES Routine 01/20/2022 12:00 AM EDT PERIODIC ORAL EVALUATION - ESTABLISHED PATIENT Routine 01/20/2022 12:00 AM EDT INTRAORAL - COMPLETE SERIES OF RADIOGRAPHIC IMAGES Routine 04/03/2019 12:00 AM EST from Last 3 Months or Most Recently Relevant to Health Maintenance Results * Biopsy cervix (10/01/2024 10:49 AM EDT) Historical Provider IN CLINIC/BEDSIDE ORDERAB LES Final Result * (ABNORMAL) Hm Pap Smear (05/24/2023) Pap Epithelial cell abnormality(A ) Negative for intraephithelial lesion or malignancy, Other HPV Detected(A) Undetected, Indeterminate, Quantitative, Not Detected Historical Provider HEALTH MAINTENANCE Final Result * HEPATITIS C AB W/REFL TO HCV RNA, QN, PCR (03/30/2022 9:03 AM EDT) HEPATITIS C ANTIBODY NON-REACTI VE NON-REACT BRIGIDA CONVERTED LEGACY LABS INDEX 0.13 <1.00 CONVERTED LEGACY LABS Comment: HCV antibody was non-reactive. There is no laboratory evidence of HCV infection. In most cases, no further action is required. However, if recent HCV exposure is suspected, a test for HCV RNA (test code 06329) is suggested. For additional information please refer to http://education.YellowHammer.Lightonus.com/faq/ZJT86c4 (This link is being provided for informational/ educational purposes only.) 03/30/2022 9:03 AM EDT Fabi NGUYEN HISTORICAL/NON ORDERABLE LABS Final Result CONVERTED LEGACY LABS * HIV 1/2 ANTIGEN/ANTIBODY,FOURTH GENERATION W/RFL (03/30/2022 9:03 AM EDT) Pathologist [facility] HIV-1/2 ANTIGEN AND ANTIBODIES, 4TH GENERATION W/ REFLEX NON-REACT BRIGIDA NON-REACT BRIGIDA CONVERTED LEGACY LABS Comment: HIV-1 antigen and HIV-1/HIV-2 antibodies were not detected. There is no laboratory evidence of HIV infection. PLEASE NOTE: This information has been disclosed to you from records whose confidentiality may be protected by state law. If your state requires such protection, then the state law prohibits you from making any further disclosure of the information without the specific written consent of the person to whom it pertains, or as otherwise permitted by law. A general authorization for the release of medical or other information is NOT sufficient for this purpose. For additional information please refer to http://RABT.JAYS/faq/OKG771 (This link is being provided for informational/ educational purposes only.) The performance of this assay has not been clinically validated in patients less than 2 years old. 03/30/2022 9:03 AM EDT Fabi Santoro [facility] LAB BLOOD ORDERABLES Final Res ult CONVERTED LEGACY LABS * (ABNORMAL) LIPID PANEL, STANDARD (03/30/2022 9:03 AM EDT) [facility] Chol/HDLC Ratio 4.5 <5.0 (calc) CONVERTED LEGACY LABS Cholesterol, Total 189 <200 mg/dL CONVERTED LEGACY LABS HDL Cholesterol 42(L) > OR = 50 mg/dL CONVERTED LEGACY LABS LDL Cholesterol 126(H) mg/dL (calc) CONVERTED LEGACY LABS Comment: Reference range: <100 Desirable range <100 mg/dL for primary prevention; <70 mg/dL for patients with CHD or diabetic patients with > or = 2 CHD risk factors. LDL-C is now calculated using the Serge calculation, which is a validated novel method providing better accuracy than the Friedewald equation in the estimation of LDL-C. Ian GAY et al. DAVIDE. 2013;310(19): 3781-7403 (http://education.NewsiT.Lightonus.com/faq/ASH965) Non-HDL Cholesterol 147(H) <130 mg/dL (calc) CONVERTED LEGACY LABS Comment: For patients with diabetes plus 1 major ASCVD risk factor, treating to a non-HDL-C goal of <100 mg/dL (LDL-C of <70 mg/dL) is considered a therapeutic option. Triglycerides 107 <150 mg/dL CONVE RTED LEGACY LABS 03/30/2022 9:03 AM EDT Fabi LARAP LAB BLOOD ORDERABLES Final Res ult CONVERTED LEGACY LABS from Last 3 Months or Most Recently Relevant to Health Maintenance Insurance HS FULL Care Teams V Belt Builder Relationship Specialty Start Date End Date Fabi Santoro FNP [address] [place] [id number] PCP - General Family Medicine 11/23/21
[2025-03-21 11:45] LABS: MANUAL DIFF FLAG NO
[2025-03-21 11:48] LABS: Hematocrit 44.3 % (37.0-47.0); Hemoglobin 14.6 g/dl (12.0-16.0); Imm Gran Abs Auto 0.05 X10*3/uL (0.00-0.03); Imm Gran Pct Auto 0.6 % (0.0-0.4); Lymphocytes Absolute Auto 1.8 X10*3/uL (1.2-4.9); Mean Corpuscular HGB Conc 33.0 g/dl (31.0-35.0); Mean Corpuscular Hemoglobin 27.5 pg (27.0-33.0); Mean Corpuscular Volume 83.4 fL (80.0-98.0); NRBC Abs Auto 0.000 X10*3/uL (0.0-0.012); NRBC Pct Auto 0.0 /100WBC (0.0-0.2); Platelet Count 290 X10*3/uL (160-400); Red Blood Count 5.31 X10*6/uL (4.20-5.50); White Blood Count 8.7 X10*3/uL (4.8-10.8)
[2025-03-21 12:17] LABS: Alanine Aminotransferase 29 U/L (0-31); Albumin Level 4.3 g/dL (3.5-5.0); Alkaline Phosphatase 92 U/L (39-117); Anion Gap 11 (12-20); Aspartate Amino Transferase 28 U/L (5-31); Blood Urea Nitrogen 10 mg/dL (9-16); Calcium 9.0 mg/dL (8.4-10.2); Carbon Dioxide 26 mmol/L (22-29); Chloride 107 mmol/L (96-108); Cholesterol 199 mg/dL (<200); Estimated Glomerular Filt Rate > 60; HDL Cholesterol 37 mg/dL (>40); Potassium 4.3 mmol/L (3.3-5.1); Sodium 140 mmol/L (135-145); Total Protein 8.0 g/dL (6.5-8.0); Triglycerides 134 mg/dL (<150)
[2025-03-21 12:23] LABS: HIV Num 1 0.06 S/CO (0.00-0.99)
[2025-03-21 13:16] LABS: CT PCR Urine NOT DETECTED (Not Detect.); NG PCR Urine NOT DETECTED (Not Detect.)
[2025-03-23 15:34] LABS: HCV Log PCR <1.18 NOT DETECTED Log IU/mL (NOT DETECTED); HepC Viral Load <15 NOT DETECTED IU/mL (NOT DETECTED)
== END 2025-03-21 08:40 | disposition home or self-care (01) ==
LOC: HO.HHCL 08:39
PROVIDERS: PCP Registered Nurse; Visit Provider Registered Nurse
DX: Z00.00 Encounter for general adult medical examination without abnormal findings (principal); Z20.2 Contact with and (suspected) exposure to infections with a predominantly sexual mode of transmission; Z11.59 Encounter for screening for other viral diseases; Z11.4 Encounter for screening for human immunodeficiency virus [HIV]
CPT/HCPCS: 80053; 80061; 83036; 84443; 85025; 86592; 87389; 87491; 87522; 87591